=== PATIENT | male | born 1940 | race Caucasian/White ===

== ENCOUNTER → 2023-12-10 09:02 | Outpatient (REF) | payer MEDICARE, BC, SELFPAY ==
[2023-12-10 13:44] LABS: % Basophils 0.6 % (0-2); % Eosinophils 1.7 % (0-6); % Immature Granulocytes 0.2 % (0-0.5); % Lymphocytes 26.7 % (20.5-51.1); % Monocytes 15.9 % (1.7-9.3); % Neutrophils 54.9 % (42.2-75.2); Absolute Eosinophils 0.1 10^3/uL (0-0.7); Absolute Lymphocytes 1.8 10^3/uL (1.2-3.4); Absolute Monocytes 1.1 10^3/uL (0.1-0.6); Absolute Neutrophils 3.7 10^3/uL (1.4-6.5); Mean Corp Hgb Conc. 32.5 g/dL (33.0-37.0); Mean Corpuscular Hgb 27.7 pg (27.0-31.0); Mean Corpuscular Volume 85.1 fL (80.0-94.0); Mean Platelet Volume 12.1 fL (7.4-10.4); Nucleated Red Blood Cells % 0 % (-); Platelet Count 131 10^3/uL (130-400); Red Cell Dist. Width 13.6 % (11.5-14.5); White Blood Cell Count 6.7 10^3/uL (4.8-10.8)
[2023-12-10 13:59] LABS: ALT (SGPT) 17 U/L (0-50); AST (SGOT) 24 U/L (17-59); Alkaline Phosphatase 109 U/L (38-126); Blood Urea Nitrogen 16 mg/dl (9-20); Calcium 8.9 mg/dl (8.4-10.2); Carbon Dioxide 26 mmol/L (22-30); Chloride 104 mmol/L (98-107); Glucose 111 mg/dl (70-99); HDL Cholesterol 46 mg/dl; LDL Cholesterol, Calculated 45 mg/dl; Potassium 4.1 mmol/L (3.5-5.1); Sodium 136 mmol/L (135-145); Total Bilirubin 0.9 mg/dl (0.2-1.3); Total Cholesterol 110 mg/dl (50-199); Total Protein 7.3 g/dl (6.3-8.2); Triglyceride 99 mg/dl (10-149); Very Low Density Lipoprotein 19 mg/dl (0-30); eGFR > 60.00
[2023-12-10 14:11] LABS: Vitamin D, 25-OH*** 64.2 ng/mL (30-80)
[2023-12-10 14:24] LABS: TSH Reflex To Free T4 2.29 uIU/ml (0.47-4.68)
[2023-12-10 14:43] LABS: Microalbumin, Random Urine <0.6 mg/dl (0.6-1.7)
[2023-12-11 11:41] LABS: Glycohemoglobin (HgbA1c) 6.3 % (4.0-5.6)
== END ==
LOC: HWLAB 09:02
PROVIDERS: ATTENDING PHYSICIAN Nurse Practitioner Family
DX: Z76.89 Persons encountering health services in other specified circumstances (principal); I48.0 Paroxysmal atrial fibrillation; I25.10 Atherosclerotic heart disease of native coronary artery without angina pectoris; E78.5 Hyperlipidemia, unspecified; Z95.1 Presence of aortocoronary bypass graft; I35.0 Nonrheumatic aortic (valve) stenosis; E11.59 Type 2 diabetes mellitus with other circulatory complications; I10 Essential (primary) hypertension; N40.1 Benign prostatic hyperplasia with lower urinary tract symptoms; I25.5 Ischemic cardiomyopathy; E55.9 Vitamin D deficiency, unspecified; I45.81 Long QT syndrome; I73.9 Peripheral vascular disease, unspecified; H40.9 Unspecified glaucoma; R21 Rash and other nonspecific skin eruption
CPT/HCPCS: 36415; 80053; 80061; 82043; 82306; 82570; 83036; 84443; 85025

== ENCOUNTER → 2024-06-08 14:55 | Outpatient (REF) | payer MEDICARE, BC, SELFPAY | LOC: HWRCS 14:55 | PROVIDERS: ATTENDING PHYSICIAN Internal Medicine Cardiovascular Disease; FAMILY PHYSICIAN Nurse Practitioner Family | DX: I25.10 Atherosclerotic heart disease of native coronary artery without angina pectoris (principal) | CPT/HCPCS: 93306 ==

== ENCOUNTER → 2024-07-01 10:07 | Outpatient (REF) | payer MEDICARE, BC, SELFPAY ==
[2024-07-01 11:05] LABS: % Basophils 0.7 % (0-2); % Eosinophils 1.6 % (0-6); % Immature Granulocytes 0.7 % (0-0.5); % Lymphocytes 26.1 % (20.5-51.1); % Monocytes 14.9 % (1.7-9.3); Absolute Basophils 0.1 10^3/uL (0-0.2); Absolute Eosinophils 0.1 10^3/uL (0-0.7); Absolute Immature Granulocytes 0.1 10^3/uL (0-0.05); Absolute Monocytes 1.1 10^3/uL (0.1-0.6); Absolute Neutrophils 4.3 10^3/uL (1.4-6.5); Hematocrit 40.8 % (39.0-52.0); Hemoglobin 13.7 g/dL (13.0-18.0); Mean Corp Hgb Conc. 33.6 g/dL (33.0-37.0); Mean Corpuscular Hgb 28.3 pg (27.0-31.0); Mean Corpuscular Volume 84.3 fL (80.0-94.0); Mean Platelet Volume 11.7 fL (7.4-10.4); Nucleated Red Blood Cells % 0 % (-); Platelet Count 160 10^3/uL (130-400); Red Blood Cell Count 4.84 10^6/uL (4.70-6.10); White Blood Cell Count 7.6 10^3/uL (4.8-10.8)
[2024-07-01 11:30] LABS: Microalbumin, Random Urine 1.4 mg/dl (0.6-1.7); Microalbumin/creatinine Ratio 7.9 mg/g
[2024-07-01 11:33] LABS: ALT (SGPT) 21 U/L (0-50); AST (SGOT) 24 U/L (17-59); Albumin 4.1 g/dl (3.5-5.0); Alkaline Phosphatase 112 U/L (38-126); Blood Urea Nitrogen 17 mg/dl (9-20); Calcium 9.1 mg/dl (8.4-10.2); Carbon Dioxide 26 mmol/L (22-30); Chloride 104 mmol/L (98-107); Glucose 117 mg/dl (70-99); HDL Cholesterol 45 mg/dl; LDL Cholesterol, Calculated 51 mg/dl; Potassium 4.3 mmol/L (3.5-5.1); Sodium 144 mmol/L (135-145); Total Bilirubin 0.8 mg/dl (0.2-1.3); Total Cholesterol 120 mg/dl (50-199); Total Protein 7.2 g/dl (6.3-8.2); Triglyceride 121 mg/dl (10-149); Very Low Density Lipoprotein 24 mg/dl (0-30); eGFR > 60.00
[2024-07-01 12:06] LABS: TSH Reflex To Free T4 1.95 uIU/ml (0.47-4.68)
[2024-07-01 13:41] LABS: Glycohemoglobin (HgbA1c) 6.3 % (4.0-5.6)
== END ==
LOC: RAD 10:07
PROVIDERS: ATTENDING PHYSICIAN Nurse Practitioner Family; REFERRING PHYSICIAN Internal Medicine Cardiovascular Disease
DX: I48.0 Paroxysmal atrial fibrillation (principal); I25.10 Atherosclerotic heart disease of native coronary artery without angina pectoris; E78.5 Hyperlipidemia, unspecified; Z95.1 Presence of aortocoronary bypass graft; I35.0 Nonrheumatic aortic (valve) stenosis; E11.59 Type 2 diabetes mellitus with other circulatory complications; I10 Essential (primary) hypertension; N40.1 Benign prostatic hyperplasia with lower urinary tract symptoms; I25.5 Ischemic cardiomyopathy; E55.9 Vitamin D deficiency, unspecified; I45.81 Long QT syndrome; H40.9 Unspecified glaucoma; B02.29 Other postherpetic nervous system involvement; M54.50 Low back pain, unspecified; R73.03 Prediabetes
CPT/HCPCS: 36415; 72110; 80053; 80061; 82043; 82570; 83036; 84443; 85025

== ENCOUNTER 2024-09-11 06:31 | Day surgery (SDC) | payer MEDICARE, BC, SELFPAY ==
[2024-09-11] VITALS (12 sets, daily range): BP systolic 92–143; BP diastolic 50–88; BMI 31.1
[2024-09-11 07:13] LABS: Hematocrit 42.9 % (39.0-52.0); Hemoglobin 14.1 g/dL (13.0-18.0); Mean Corp Hgb Conc. 32.9 g/dL (33.0-37.0); Mean Corpuscular Hgb 28.1 pg (27.0-31.0); Mean Corpuscular Volume 85.5 fL (80.0-94.0); Mean Platelet Volume 11.9 fL (7.4-10.4); Platelet Count 142 10^3/uL (130-400); Red Blood Cell Count 5.02 10^6/uL (4.70-6.10); Red Cell Dist. Width 13.3 % (11.5-14.5); White Blood Cell Count 7.4 10^3/uL (4.8-10.8)
[2024-09-11 07:31] LABS: ALT (SGPT) 22 U/L (0-50); AST (SGOT) 26 U/L (17-59); Albumin 4.5 g/dl (3.5-5.0); Alkaline Phosphatase 121 U/L (38-126); Blood Urea Nitrogen 15 mg/dl (9-20); Carbon Dioxide 24 mmol/L (22-30); Chloride 105 mmol/L (98-107); Estimated Creatinine Clearance 59 ml/min; Glucose 154 mg/dl (70-99); Sodium 142 mmol/L (135-145); Total Bilirubin 1.1 mg/dl (0.2-1.3); Total Protein 7.6 g/dl (6.3-8.2); eGFR > 60.00
[2024-09-11] MEDS: LOW STRENGTH ASPIRIN 324 MG PO (08:03)
--- NOTE | 2024-09-11 12:57 | ITS.CL.CATH ---
Validation Scientist - Catheterization
Cardiac Catheterization
Procedure Report:
LEFT HEART CATHETERIZATION
Date of Procedure: September 11, 2024
Referring: Dr. Erica Newsome
PROCEDURES:
1. Left heart catheterization with coronary and single-plane left ventriculography
2. Selective saphenous vein graft and KHUSHBU angiography
INDICATION: This is an 84-year-old gentleman who presented to our office for evaluation of substernal chest discomfort which has been present for several months. He has a remote history of coronary artery bypass grafting at [facility] in the
late 1990s. He has a history of hypertension, hyperlipidemia, diabetes mellitus, and paroxysmal atrial fibrillation with PVI in 2016 and again in 2021. He occasionally will experience chest discomfort during episodes of atrial tachycardia. More
recently he has noticed chest tightness when climbing a flight of stairs or walking great distances. His symptoms typically resolve fairly quickly with resting. In 2021 he underwent successful stenting of the proximal LAD with a 2.5 x 15 mm Karl
stent that was implanted at nominal pressures and postdilated to high pressures with a 2.75 mm noncompliant balloon.
ACCESS: Right common femoral artery, 6 Albanian sheath
HEMODYNAMICS : (mmHg)
AO (s/d) : 147/80, 106
LV (s/d) : 162/13
LVEDP : 21
AORTIC VALVE:
Mean Gradient: 20 mmHg
CORONARY ANGIOGRAPHY
Dominance: Right
LEFT MAIN: Calcified with 30% distal stenosis.
LEFT ANTERIOR DESCENDING: The LAD arises normally from the left main and runs in the anterior ventricular groove. The Karl stent in the proximal LAD is patent. The mid LAD becomes 100% occluded just beyond the first diagonal branch. The diagonal
was previously noted to fill the sequential limb of the SVG-D-OM. The sequential limb to the small OM2 is no longer noted. The CULLEN-LAD is widely patent and fills antegrade and retrograde to the KHUSHBU anastomosis. The LAD has mild irregularities
proximal to and beyond the KHUSHBU touchdown.
CIRCUMFLEX: The circumflex is a medium caliber nondominant vessel giving rise to a moderate-sized OM1 that runs in a distribution typical for a ramus intermedius. OM2 is small with a focal high-grade ostial stenosis. The small OM2 was noted to
fill via a sequential portion of the SVG-D-OM2. This sequential limb is now 100% occluded. OM2 is a very small caliber vessel.
RIGHT CORONARY ARTERY: Moderate caliber dominant vessel that becomes 100% occluded in its midportion. The posterolateral branch and PDA fill via well-developed collaterals from the AV circumflex.
GRAFT ANGIOGRAPHY:
1. CULLEN-LAD: Widely patent with antegrade and retrograde filling of the LAD proximal and distal to the KHUSHBU touchdown. Only minor irregularities are noted.
2. HLT-hnevucqa-YH 2: 100% occluded at its origin
3. SVG-RCA: 100% occluded
LEFT VENTRICULOGRAPHY: Left ventriculography was performed in an ANGELES projection. The digital single-plane left ventricular ejection fraction is visually estimated at 40-45% with moderate global hypokinesis
RADIATION SUMMARY: Fluoro Time (min): 9.7, Dose (mGy): 779, DAP (Gy.cm2) : 64
Closure Device: 6 Albanian Angio-Seal, RFA
CONCLUSION
1. Stable coronary anatomy. The only new angiographic finding is 100% occlusion of the sequential limb of the SVG from the diagonal to the small OM2. No good percutaneous treatment options
2. Widely patent CULLEN-LAD and known proximal chronic occlusions of the SVG-RCA and BXG-[id number]-SV9.
3. Mildly reduced LVEF
RECOMMENDATIONS
1. Medical therapy for coronary artery disease. We will increase Toprol XL from 12.5 mg bid to 25 mg bid
2. Followup with Dr. Newsome
Copy to: Dr. Erica Newsome, Dr. Bong Velazquez
== END 2024-09-11 14:05 | disposition home or self-care (01) ==
LOC: CATH 06:31
PROVIDERS: ATTENDING PHYSICIAN Internal Medicine Interventional Cardiology; FAMILY PHYSICIAN Surgery; OTHER PHYSICIAN Internal Medicine Cardiovascular Disease
DX: I25.810 Atherosclerosis of coronary artery bypass graft(s) without angina pectoris (principal); I25.10 Atherosclerotic heart disease of native coronary artery without angina pectoris; R07.89 Other chest pain; Z95.5 Presence of coronary angioplasty implant and graft; I48.0 Paroxysmal atrial fibrillation; I10 Essential (primary) hypertension; E78.5 Hyperlipidemia, unspecified; E11.9 Type 2 diabetes mellitus without complications; Z95.1 Presence of aortocoronary bypass graft; Z87.891 Personal history of nicotine dependence; Z79.01 Long term (current) use of anticoagulants; Z79.02 Long term (current) use of antithrombotics/antiplatelets; Z79.84 Long term (current) use of oral hypoglycemic drugs
CPT/HCPCS: 80053; 85027; 93459; C1760; C1894; Q9967

== ENCOUNTER → 2024-10-25 12:48 | Outpatient (REF) | payer OTHER, SELFPAY | LOC: RCS 12:48 | PROVIDERS: ATTENDING PHYSICIAN Internal Medicine Cardiovascular Disease; FAMILY PHYSICIAN Nurse Practitioner Family | DX: R07.9 Chest pain, unspecified (principal) | CPT/HCPCS: 93306 ==

== ENCOUNTER → 2024-10-27 10:30 | Outpatient (REF) | payer OTHER, SELFPAY ==
[2024-10-27 12:26] LABS: % Basophils 0.9 % (0-2); % Eosinophils 1.4 % (0-6); % Immature Granulocytes 0.4 % (0-0.5); % Lymphocytes 26.6 % (20.5-51.1); % Monocytes 15.2 % (1.7-9.3); % Neutrophils 55.5 % (42.2-75.2); Absolute Basophils 0.1 10^3/uL (0-0.2); Absolute Eosinophils 0.1 10^3/uL (0-0.7); Absolute Lymphocytes 1.9 10^3/uL (1.2-3.4); Absolute Monocytes 1.1 10^3/uL (0.1-0.6); Absolute Neutrophils 3.9 10^3/uL (1.4-6.5); Hematocrit 41.4 % (39.0-52.0); Hemoglobin 13.2 g/dL (13.0-18.0); Mean Corp Hgb Conc. 31.9 g/dL (33.0-37.0); Mean Corpuscular Hgb 28.1 pg (27.0-31.0); Mean Corpuscular Volume 88.1 fL (80.0-94.0); Mean Platelet Volume 12.5 fL (7.4-10.4); Nucleated Red Blood Cells % 0 % (-); Platelet Count 131 10^3/uL (130-400); Red Cell Dist. Width 13.2 % (11.5-14.5)
[2024-10-27 12:39] LABS: ALT (SGPT) 15 U/L (0-50); AST (SGOT) 21 U/L (17-59); Albumin 3.9 g/dl (3.5-5.0); Alkaline Phosphatase 108 U/L (38-126); Blood Urea Nitrogen 16 mg/dl (9-20); Carbon Dioxide 27 mmol/L (22-30); Chloride 103 mmol/L (98-107); Glucose 112 mg/dl (70-99); HDL Cholesterol 40 mg/dl; LDL Cholesterol, Calculated 48 mg/dl; Potassium 4.1 mmol/L (3.5-5.1); Sodium 138 mmol/L (135-145); Total Bilirubin 0.9 mg/dl (0.2-1.3); Total Cholesterol 110 mg/dl (50-199); Total Protein 6.9 g/dl (6.3-8.2); Triglyceride 110 mg/dl (10-149); Very Low Density Lipoprotein 22 mg/dl (0-30); eGFR > 60.00
[2024-10-27 13:07] LABS: TSH Reflex To Free T4 1.96 uIU/ml (0.47-4.68)
[2024-10-27 13:10] LABS: NT-proBNP 1180 pg/ml
[2024-10-27 14:04] LABS: Glycohemoglobin (HgbA1c) 6.4 % (4.0-5.6)
[2024-10-27 14:31] LABS: Microalbumin, Random Urine 0.7 mg/dl (0.6-1.7)
== END ==
LOC: HWLAB 10:30
PROVIDERS: ATTENDING PHYSICIAN Internal Medicine Cardiovascular Disease; FAMILY PHYSICIAN Nurse Practitioner Family
DX: I48.0 Paroxysmal atrial fibrillation (principal); I25.10 Atherosclerotic heart disease of native coronary artery without angina pectoris; E78.5 Hyperlipidemia, unspecified; Z95.1 Presence of aortocoronary bypass graft; I35.0 Nonrheumatic aortic (valve) stenosis; I25.5 Ischemic cardiomyopathy; E11.59 Type 2 diabetes mellitus with other circulatory complications; I10 Essential (primary) hypertension; N40.1 Benign prostatic hyperplasia with lower urinary tract symptoms; E55.9 Vitamin D deficiency, unspecified; I45.81 Long QT syndrome; H40.9 Unspecified glaucoma; B02.29 Other postherpetic nervous system involvement; R07.89 Other chest pain; R14.2 Eructation
CPT/HCPCS: 36415; 80053; 80061; 82043; 82306; 82570; 83036; 83880; 84443; 85025

== ENCOUNTER → 2024-11-07 10:06 | Outpatient (REF) | payer OTHER, SELFPAY | LOC: WDC 10:06 | PROVIDERS: ATTENDING PHYSICIAN Internal Medicine Cardiovascular Disease; FAMILY PHYSICIAN Nurse Practitioner Family | DX: N64.4 Mastodynia (principal) | CPT/HCPCS: 76642; 77062; 77066 ==

== ENCOUNTER → 2024-11-20 09:34 | Outpatient (REF) | payer OTHER, SELFPAY ==
[2024-11-20 12:28] LABS: Blood Urea Nitrogen 20 mg/dl (9-20); Calcium 9.2 mg/dl (8.4-10.2); Carbon Dioxide 26 mmol/L (22-30); Chloride 100 mmol/L (98-107); Glucose 130 mg/dl (70-99); Potassium 4.1 mmol/L (3.5-5.1); Sodium 137 mmol/L (135-145); eGFR > 60.00
== END ==
LOC: HWLAB 09:34
PROVIDERS: ATTENDING PHYSICIAN Nurse Practitioner Family
DX: R60.0 Localized edema (principal); M54.9 Dorsalgia, unspecified; R06.09 Other forms of dyspnea; R07.9 Chest pain, unspecified
CPT/HCPCS: 36415; 71046; 72072; 80048

== ENCOUNTER 2024-12-07 15:45 | Outpatient (RCR) | payer OTHER, SELFPAY | END 2024-12-07 23:59 | disposition home or self-care (01) | LOC: RPT 15:45 | PROVIDERS: ATTENDING PHYSICIAN Nurse Practitioner Family | DX: M54.9 Dorsalgia, unspecified (principal); Z73.6 Limitation of activities due to disability; M25.561 Pain in right knee | CPT/HCPCS: 97110; 97140; 97162 ==

== ENCOUNTER 2024-12-29 10:47 | Outpatient (RCR) | payer OTHER, SELFPAY | END 2024-12-29 23:59 | disposition home or self-care (01) | LOC: RPT 10:47 | PROVIDERS: ATTENDING PHYSICIAN Nurse Practitioner Family | DX: M54.9 Dorsalgia, unspecified (principal); Z73.6 Limitation of activities due to disability; M25.561 Pain in right knee | CPT/HCPCS: 97110; 97140 ==

== ENCOUNTER → 2024-12-29 16:30 | Outpatient (REF) | payer OTHER, SELFPAY | LOC: RAD 16:30 | PROVIDERS: ATTENDING PHYSICIAN Internal Medicine Cardiovascular Disease; FAMILY PHYSICIAN Nurse Practitioner Family | DX: I71.9 Aortic aneurysm of unspecified site, without rupture (principal); I71.21 Aneurysm of the ascending aorta, without rupture | CPT/HCPCS: 71275; 74174; Q9967 ==

== ENCOUNTER 2025-04-05 11:23 | Emergency (ER) | payer OTHER, SELFPAY ==
[2025-04-05 11:30] VITALS: BP 106/59
--- NOTE | 2025-04-05 12:48 | ED.GENMED ---
History of Present Illness
General
Chief Complaint: Extremity Pain (non-traumatic)
Source: patient
Time Seen by Provider: 04/05/25 12:01
History of Present Illness
History of Present Illness:
85-year-old male with past medical history of atrial fibrillation, hypertension, hyperlipidemia, [id number] diabetes presenting to the emergency department for evaluation of nontraumatic left knee pain that has been ongoing for the last
few days, worse with ambulation, somewhat improved when he took Tylenol 2 days ago. Patient notes history of previous right knee surgery and believes he saw [facility] orthopedist in the past for this. Patient denies any fevers, chills, rigors, calf
pain or edema, focal weakness or numbness or any other concerns. He did not take anything for the pain yet today.
Past History
Past History
ED Past Medical History: Arrthythmia (Atrial fib), CAD, HTN, Hypercholesterolemia and IA
ED Past Surgical History: Appendectomy and Cardiac (CABG, ablation for a-fib)
Social History
Tobacco: Former smoker
Alcohol: Occasional
Drug: None
Personal: Other (Significant other)
Living: with family
Review of Systems
Review of Systems
All Other Systems: ROS reviewed and negative except as documented in HPI and ROS
Phy Exam
Physical Exam
Physical Exam:
GENERAL: Alert , in no apparent distress
EYE: conjunctiva clear
Head: Normocephalic atraumatic
NECK: Supple,
ENT: mmm.
LUNGS: no acute respiratory distress
NEUROLOGICAL: Alert and oriented
SKIN: Warm and dry, skin intact.
MUSCULOSKELETAL: Left knee: Mild soft tissue swelling without any joint effusion appreciated. No overlying erythema, ecchymosis, abrasions or lacerations. Patient does allow for active and passive range of motion without any crepitus. This does
cause some slight discomfort.. Peripherally patient has easily palpable pulses. Cap refill less than 2 seconds. Sensation grossly to light touch. Remainder of extremity is within normal limit.
PSYCH: Normal and appropriate interaction.
Scores
Heart Failure Risk
Heart Failure Risk Score: Not Applicable
Heart Score for Chest Pain Patients
STEMI patient?: Not applicable
Withdrawal Assessment of Alcohol
Withdrawal Assessment Completed?: Not applicable
Course
Orders/Labs/Results
Orders:
Orders
04/05/25 12:05
CR Knee - Left 4 Or More View* Urgent
Comment:
Reason For Exam: pain
04/05/25 12:48
Acetaminophen [Tylenol] 1,000 mg PO NOW STA
Vital Signs
Initial and Last Documented VS:
Initial Vital Signs
Temp Pulse Resp Pulse Ox
97.9 F 119 18 95
04/05/25 11:29 04/05/25 11:29 04/05/25 11:29 04/05/25 11:29
Last Documented Vital Signs
Temp Pulse Resp BP Pulse Ox
97.9 F 119 18 106/59 95
04/05/25 11:29 04/05/25 11:29 04/05/25 11:29 04/05/25 11:30 04/05/25 12:51
MDM/Problems Addressed
Differential Diagnosis Includes:
- Osteoarthritis
- Ligamentous injury/sprain
- Meniscal injury
- No symptoms to suggest infectious etiology/septic arthritis
- Lyme
- Gout
- DVT
MDM/Problems Addressed:
85-year-old male presenting to the ER for evaluation of nontraumatic left knee pain, symptoms somewhat improved with Tylenol but patient states he does not really like taking pain medicine so did not take any today. Exam shows soft tissue swelling
without any significant joint effusion. X-ray ordered shows significant degenerative changes throughout the knee. Patient amenable to Tylenol here. Encouraged close follow-up with his orthopedic team at [facility] for further evaluation as needed.
Patient is otherwise stable for discharge home and aware of return precautions.
*Radiology
Radiology exam reviewed: preliminary read by ED provider (Degenerative changes, no fracture)
*Pulse Oximetry
SaO2: 95
Patient hypoxic: no
*Critical Care Note
Total Time (30-74mins, 75-104mins- exclusive of procedures): Not Applicable
ED Attending Note
-
Portions of this chart may have been created with voice recognition software.� Occasional wrong word or��sound alike� substitutions may have occurred due to the inherent limitations of voice recognition software.
Discharge Plan
Departure
Patient Disposition: Home (Routine Discharge)
Date of Disposition: 04/05/25
Time of Disposition: 12:48
Patient with high blood pressure during this ER visit?: No
Discharge Problem:
Left knee pain
Instructions: Knee pain - ED discharge instructions
Prescriptions:
No Action
acetaminophen 325 MG tablet
650 mg PO Q4HPRN PRN (Reason: mild pain/SHERMAN/temp> 100.4F) 0RF
cholecalciferol (vitamin D3) 2,000 UNITS tablet
2,000 units PO DAILY Qty: 10 0RF
cyanocobalamin (vitamin B-12) [Vitamin B-12] 1,000 mcg Tablet
2,000 mcg PO DAILY Qty: 0
tamsulosin 0.4 MG capsule
0.4 mg PO HS
isosorbide mononitrate 60 MG tablet extended release 24 hr
60 mg PO DAILY
Eliquis 5 MG tablet
5 mg PO BID Qty: 60 6RF
clopidogrel 75 mg Tablet
75 mg PO DAILY Qty: 90 3RF
dofetilide 125 mcg Capsule
125 mcg PO Q12 Qty: 60 11RF
ezetimibe 10 mg tablet
10 mg PO DAILY
coenzyme Q10 [Co Q-10] 100 mg Capsule
100 mg PO DAILY
Januvia 100 mg tablet
100 mg PO DAILY
atorvastatin 40 mg Tablet
40 mg PO HS
metoprolol succinate 25 mg tablet extended release 24 hr
25 mg PO BID Qty: 180 3RF
Referrals:
Julio César Benitez CRNP [Family Provider, Family Practice]
Kamlesh Alves MD [Active, Orthopedics]
Referral Note: Please call for appointment
Interventions
Interventions:
*Risk Screen - Suicide Last Done: 04/05/25 11:30
*Nursing Disposition Last Done: 04/05/25 13:17
ED-Musculoskeletal Assessment Last Done: 04/05/25 11:46
Discharge Date and Time
Print Language: CITIZEN [place]
[2025-04-05] MEDS: TYLENOL 1000 MG PO (12:55)
== END 2025-04-05 13:18 | disposition home or self-care (01) ==
LOC: EMR 11:23
PROVIDERS: EMERGENCY PHYSICIAN Student in an Organized Health Care Education/Training Program; FAMILY PHYSICIAN Nurse Practitioner Family
DX: M25.562 Pain in left knee (principal); I48.91 Unspecified atrial fibrillation; I10 Essential (primary) hypertension; E78.00 Pure hypercholesterolemia, unspecified; E11.9 Type 2 diabetes mellitus without complications; I25.10 Atherosclerotic heart disease of native coronary artery without angina pectoris; Z87.891 Personal history of nicotine dependence; Z90.49 Acquired absence of other specified parts of digestive tract; Z95.1 Presence of aortocoronary bypass graft
CPT/HCPCS: 99283; 73564

== ENCOUNTER 2025-09-05 13:50 | Inpatient (IN) | payer OTHER, SELFPAY ==
[2025-09-02] VITALS (10 sets, daily range): BP systolic 103–140; BP diastolic 62–92; PULSE 72–99; BMI 27.2
--- NOTE | 2025-09-02 02:24 | ED.GENMED ---
History of Present Illness
<Tiago Abreu PA-C - Last Filed: 09/02/25 03:13>
General
Chief Complaint: Heart Rate Problem
Time Seen by Provider: 09/02/25 02:17
History of Present Illness
History of Present Illness:
85-year-old male with history of coronary artery disease, paroxysmal A-fib, hypertension, hyperlipidemia, jap-skarjvh-fgmqqknvg diabetes, and BPH presents to the emergency department for evaluation of heart palpitations. States yesterday he
developed significant indigestion and vomited several times. Since that time he has felt palpitations. He does report the indigestion is improved. He also feels the need to clear his throat frequently. Denies active chest pain or shortness of
breath at present but does report some exertional dyspnea over the past week or so. No fevers or chills. He is compliant with all of his medications including Eliquis. Last cardiac catheterization was September 2024 showing widely CULLEN to LAD with
the exception of 100% occlusions of the SVG to diagonal to OM 2 as well as the SVG to RCA
Past History
<Tiago Abreu PA-C - Last Filed: 09/02/25 03:13>
Past History
ED Past Medical History: Arrthythmia (Atrial fib), CAD, HTN, Hypercholesterolemia and SC
ED Past Surgical History: Appendectomy and Cardiac (CABG, ablation for a-fib)
Social History
Tobacco: Former smoker
Alcohol: Occasional
Drug: None
Personal: Other (Significant other)
Living: with family
Review of Systems
<Tiago Abreu PA-C - Last Filed: 09/02/25 03:13>
Review of Systems
Allergies reviewed?: Yes
All Other Systems: ROS reviewed and negative except as documented in HPI and ROS
Phy Exam
<Tiago Abreu PA-C - Last Filed: 09/02/25 03:13>
Physical Exam
Physical Exam:
GEN: Well appearing, NAD, WDWN
HEENT: Oral mucosa moist, no scleral icterus
Cardiac: Irregular, controlled rate, systolic murmur
Lung: No respiratory distress, no tachypnea, lungs clear to auscultation bilaterally
MSK: No gross deformity or injuries, no edema
Skin: Good color, no pallor or jaundice, no rashes
Neuro: AO x3, moves all extremities freely
Psych: Calm, cooperative
Course
<Tiago Abreu PA-C - Last Filed: 09/02/25 03:13>
Orders/Labs/Results
Orders:
Orders
09/02/25 01:58
ECG [Electrocardiogram (*1)] Urgent
Reason for Study: Chest Pain
Other Reason for Exam: PALPITATIONS
EKG- Treatment ONCE
09/02/25 02:20
Complete Blood Count/With Diff Urgent
Comprehensive Metabolic Panel Urgent
NT-proBNP Urgent
Comment: ADDED
Troponin I Urgent
09/02/25 02:24
Add On- LAB Urgent
Tests Added?: BNP
09/02/25 02:26
CR Chest - 2 Views Urgent
Comment:
Reason For Exam: SCHRADER
Abnormal Lab Results
09/02/25
02:20
RBC 4.47 L 10^6/uL
(4.70-6.10)
Hgb 12.7 L g/dL
(13.0-18.0)
Hct 37.8 L %
(39.0-52.0)
Plt Count 116 L 10^3/uL
(130-400)
MPV 12.0 H fL
(7.4-10.4)
Absolute Monos (auto) 1.1 H 10^3/uL
(0.1-0.6)
Monocytes % 14.1 H %
(1.7-9.3)
Glucose 146 H mg/dl
(70-99)
09/02/25 02:20
09/02/25 02:20
Vital Signs
Initial and Last Documented VS:
Initial Vital Signs
Temp Pulse Resp BP Pulse Ox
98.1 F 102 24 136/92 97
09/02/25 01:55 09/02/25 01:55 09/02/25 01:55 09/02/25 01:55 09/02/25 01:55
Last Documented Vital Signs
Temp Pulse Resp BP Pulse Ox
98.1 F 70 14 136/92 94
09/02/25 01:55 09/02/25 04:20 09/02/25 04:20 09/02/25 04:20 09/02/25 04:20
<Francie Blanchard, - Last Filed: 09/02/25 04:34>
Orders/Labs/Results
Orders:
Orders
09/02/25 01:58
ECG [Electrocardiogram (*1)] Urgent
Reason for Study: Chest Pain
Other Reason for Exam: PALPITATIONS
EKG- Treatment ONCE
09/02/25 02:20
Complete Blood Count/With Diff Urgent
Comprehensive Metabolic Panel Urgent
NT-proBNP Urgent
Comment: ADDED
Troponin I Urgent
09/02/25 02:24
Add On- LAB Urgent
Tests Added?: BNP
09/02/25 02:26
CR Chest - 2 Views Urgent
Comment:
Reason For Exam: SCHRADER
Abnormal Lab Results
09/02/25
02:20
RBC 4.47 L 10^6/uL
(4.70-6.10)
Hgb 12.7 L g/dL
(13.0-18.0)
Hct 37.8 L %
(39.0-52.0)
Plt Count 116 L 10^3/uL
(130-400)
MPV 12.0 H fL
(7.4-10.4)
Absolute Monos (auto) 1.1 H 10^3/uL
(0.1-0.6)
Monocytes % 14.1 H %
(1.7-9.3)
Glucose 146 H mg/dl
(70-99)
09/02/25 02:20
09/02/25 02:20
Vital Signs
Initial and Last Documented VS:
Initial Vital Signs
Temp Pulse Resp BP Pulse Ox
98.1 F 102 24 136/92 97
09/02/25 01:55 09/02/25 01:55 09/02/25 01:55 09/02/25 01:55 09/02/25 01:55
Last Documented Vital Signs
Temp Pulse Resp BP Pulse Ox
98.1 F 70 14 136/92 94
09/02/25 01:55 09/02/25 04:20 09/02/25 04:20 09/02/25 04:20 09/02/25 04:20
<Tiago Abreu PA-C - Last Filed: 09/02/25 03:13>
MDM/Problems Addressed
MDM/Problems Addressed:
Patient's workup is overall reassuring however reviewed case with attending physician Dr. Blanchard, we observe the patient's telemetry which shows frequent fusion complexes and prolonged pauses however the patient is not profoundly symptomatic during
these pauses. Given his advanced age and variable rhythm with these pauses will place in telemetry observation
<Tiago Abreu PA-C - Last Filed: 09/02/25 03:13>
Comment
Comment:
EKG independently interpreted by me shows a rate controlled atrial fibrillation with frequent PVCs, no ST changes concerning for ischemia
*Pulse Oximetry
SaO2: 95
Oxygen Mode of Delivery: Room air
Patient hypoxic: no
*Critical Care Note
Total Time (30-74mins, 75-104mins- exclusive of procedures): Not Applicable
ED Attending Note
<Tiago Abreu PA-C - Last Filed: 09/02/25 03:13>
-
Portions of this chart may have been created with voice recognition software.� Occasional wrong word or��sound alike� substitutions may have occurred due to the inherent limitations of voice recognition software.
<Francie Blanchard DO - Last Filed: 09/02/25 04:34>
ED Attending Note
Patient seen and examined by attending physician: Yes
I performed a history and physical exam of patient and discussed management with resident, I reviewed resident's note and agree with documented findings and plan of care.: Yes
ED Attending Note:
85-year-old gentleman with history of PAF, cardiomyopathy, hypertension, hyperlipidemia, diabetes,. Presents with complaints of palpitations and left upper chest CAD/SC pain that began tonight around 10 PM. Palpitations and left upper chest pain
occasionally resolved with burping but not tonight. No other associated symptoms, no dizziness nor lightheadedness.
Symptoms persisted prompting ED visit but since arrival to the ED he is now feeling improved.
85-year-old gentleman appears his stated age, awake and alert, pleasant, appears in no acute distress.
Heart is irregularly irregular at a rate of 50-80.
Lungs are clear to auscultation.
EKG shows probable A-fib with frequent PVCs, there is also note of questionable intermittent P waves.
Monitor shows similar, A-fib alternating with sinus rhythm, frequent PVCs and there is also note of significant pauses/bradycardia arrhythmia.
He remains hemodynamically stable.
Due to significant pauses on site monitor, recommend he admit to hospitalist service, continue site monitor and plan for cardiology evaluation.
Discharge Plan
Departure
Patient Disposition: Admit
Date of Disposition: 09/02/25
Time of Disposition: 03:12
Admit to: Telemetry
Presentation/result/management discussed w/ accepting MD/DO: Hospitalist
Discharge Problem:
Heart palpitations, Paroxysmal atrial fibrillation with conversion pauses
Prescriptions:
No Action
acetaminophen 325 MG tablet
650 mg PO Q4HPRN PRN (Reason: mild pain/SHERMAN/temp> 100.4F) 0RF
cholecalciferol (vitamin D3) 2,000 UNITS tablet
2,000 units PO DAILY Qty: 10 0RF
cyanocobalamin (vitamin B-12) [Vitamin B-12] 1,000 mcg Tablet
2,000 mcg PO DAILY Qty: 0
tamsulosin 0.4 MG capsule
0.4 mg PO HS
isosorbide mononitrate 60 MG tablet extended release 24 hr
60 mg PO DAILY
Eliquis 5 MG tablet
5 mg PO BID Qty: 60 6RF
clopidogrel 75 mg Tablet
75 mg PO DAILY Qty: 90 3RF
dofetilide 125 mcg Capsule
125 mcg PO Q12 Qty: 60 11RF
ezetimibe 10 mg tablet
10 mg PO DAILY
coenzyme Q10 [Co Q-10] 100 mg Capsule
100 mg PO DAILY
Januvia 100 mg tablet
100 mg PO DAILY
atorvastatin 40 mg Tablet
40 mg PO HS
metoprolol succinate 25 mg tablet extended release 24 hr
25 mg PO BID Qty: 180 3RF
Referrals:
Julio César Benitez CRNP [Family Provider, Family Practice]
Interventions
Interventions:
*Risk Screen - Suicide Last Done: 09/02/25 01:55
*General Assessment Last Done: 09/02/25 02:13
*Neglect/Abuse Screening Last Done: 09/02/25 01:55
*ED- Fall Risk Assessment Last Done: 09/02/25 02:13
*ED COVID-19 Vaccine History Last Done: 09/02/25 02:13
*ED Influenza Vaccine History Last Done: 09/02/25 02:13
ED- Cardiac Assessment Last Done: 09/02/25 02:13
ED- Pulmonary Assessment Last Done: 09/02/25 02:13
Discharge Date and Time
Print Language: YAK[place]
[2025-09-02 02:55] LABS: Hematocrit 37.8 % (39.0-52.0); Hemoglobin 12.7 g/dL (13.0-18.0); Mean Corp Hgb Conc. 33.6 g/dL (33.0-37.0); Mean Corpuscular Volume 84.6 fL (80.0-94.0); Nucleated Red Blood Cells % 0 % (-); Platelet Count 116 10^3/uL (130-400); Red Cell Dist. Width 13.5 % (11.5-14.5); Troponin I < 0.012 ng/ml
[2025-09-02 03:02] LABS: ALT (SGPT) 12 U/L (0-50); AST (SGOT) 18 U/L (17-59); Albumin 4.0 g/dl (3.5-5.0); Alkaline Phosphatase 97 U/L (38-126); Blood Urea Nitrogen 18 mg/dl (9-20); Calcium 8.4 mg/dl (8.4-10.2); Carbon Dioxide 25 mmol/L (22-30); Chloride 105 mmol/L (98-107); Glucose 146 mg/dl (70-99); Potassium 3.5 mmol/L (3.5-5.1); Sodium 138 mmol/L (135-145); Total Protein 7.0 g/dl (6.3-8.2); eGFR > 60.00
--- NOTE | 2025-09-02 03:57 | HPS.HSE ---
Family Physician
-
Family Physician: CAMILLE Kirby
Chief Complaint
-
Palpitations
History of Present Illness
Patient is a 85-year-old with past medical history significant for atrial fibrillation on anticoagulation status post ablation, CAD status post CABG, status post PCI 2023, [id number] diabetes, hypertension, hyperlipidemia, BPH who comes
in with complaints of chest pain and palpitation.
Patient tells me that at around 10 PM he noticed left upper chest pain that he has experienced previously and that usually improves with burping. However he popped several times and the pain was still persistent and he became concerned. Reports
that the pain was associated with deep inspiration. He also reports that there is some association with some shortness of breath. There was no diaphoresis and no nausea or vomiting. He reports that he associates the pain with tachycardia to
greater than 110 on pulse oximetry and improvement when the pulse rate is below 70. He denies feeling dizzy or lightheaded. Denies any syncopal episode.
He is status post PCI 2023 and is currently on Plavix and Eliquis.
In the Emergency Department he was afebrile, blood pressure was 104/64 with a pulse rate of 85 and he was satting 97% on room air. ECG shows atrial fibrillation at rate of 97 with occasional PVC. Chest x-ray shows no acute infiltrates. Troponin
was negative at 0.012. BNP was elevated at 1700. Electrolytes BUN/creatinine were all normal with normal glucose. CBC was unremarkable.
Medical History
Past Medical History
Past Medical History: Reports Other
Additional Past Medical History:
ASCVD
Paroxysmal Atrial Fibrillation
DM-II
Hypertension
Aortic Stenosis
DJD
Past Surgical History: Reports Other
Additional Past Surgical History:
PVI Ablation x 2
PTCA with Stent
Right Knee Arthroscopy x multiple
Lumbar Laminectomy
Trigger Finger Release
Social History
Tobacco: Former Smoker
Alcohol: None
Drug: None
Family History
Family History: Not pertinent
Allergies / Home Medications
Allergies reflects when Allergies were last updated in [facility].
Home Medications with original date entered in [facility]
Allergy/Medication List:
Allergies
Allergy/AdvReac Type Severity Reaction Status Date / Time
No Known Allergies Allergy Verified 09/10/23 13:28
Home Medications
acetaminophen 325 mg tablet 650 mg PO Q4HPRN PRN mild pain/SHERMAN/temp> 100.4F 09/11/19
cholecalciferol (vitamin D3) 50 mcg (2,000 unit) tablet 2,000 units PO DAILY #10 tabs 09/02/20
cyanocobalamin (vitamin B-12) 1,000 mcg tablet (Vitamin B-12) 2,000 mcg PO DAILY ##0 11/20/21
tamsulosin 0.4 mg capsule 0.4 mg PO HS 11/20/21
apixaban 5 mg tablet (Eliquis) 5 mg PO BID #60 tabs 12/01/21
isosorbide mononitrate 60 mg tablet,extended release 24 hr 60 mg PO DAILY 12/01/21
metformin 500 mg tablet,extended release 24 hr 500 mg PO BID@0800,1700 09/16/22
clopidogrel 75 mg tablet 75 mg PO DAILY #90 tabs 09/19/22
dofetilide 125 mcg capsule 125 mcg PO Q12 #60 caps 09/19/22
metoprolol succinate 25 mg tablet,extended release 24 hr 12.5 mg PO BID 30 days #30 tabs 09/19/22
coenzyme Q10 100 mg capsule (Co Q-10) 100 mg PO DAILY 09/14/23
ezetimibe 10 mg tablet 10 mg PO DAILY 09/14/23
hydrocodone 5 mg-acetaminophen 325 mg tablet 0.5 tab PO HSPRN PRN moderate Pain 09/14/23
sitagliptin phosphate 100 mg tablet (Januvia) 100 mg PO DAILY 09/14/23
Review of Systems
-
Constitutional: Reports No Symptoms
EENT: Reports No Symptoms
Respiratory: Reports No Symptoms
Cardiac: Reports Chest Pain and Palpitations
Abdomen/GI: Reports Nausea
: Reports No Symptoms
Musculoskeletal: Reports No Symptoms
Skin: Reports No Symptoms
Neurological: Reports No Symptoms
Endocrine: Reports No Symptoms
Hematologic/Lymphatic: Reports No Symptoms
Psych: Reports No Symptoms
Physical Exam
Vital Signs
Vital Signs
Temp Pulse Resp BP Pulse Ox
98.1 F 85 22 124/64 97
09/02/25 01:55 09/02/25 03:01 09/02/25 03:01 09/02/25 02:14 09/02/25 03:01
Physical Exam
General: Other (83y M in mild distress due to pain.)
HEENT: Moist mucous membranes
Respiratory: Clear; No Wheezes, Rales or Rhonchi
Cardiac: S1/S2, Irregular Rhythm and Murmur (II/ SERA)
GI: Soft, Non Tender, Non Distended and Normal Bowel Sounds
Musculoskeletal: No Clubbing, No Cyanosis and No Edema
Skin: Warm and Dry
Neuro: AO x 3 and Nonfocal/grossly intact
Hematologic/Lymphatic: No Lymphadenopathy
Psych: Calm
Laboratory Results
-
09/02/25 02:20
09/02/25 02:20
Laboratory Results
Total Bilirubin 0.8 mg/dl (0.2-1.3) 09/02/25 02:20
AST 18 U/L (17-59) 09/02/25 02:20
ALT 12 U/L (0-50) 09/02/25 02:20
Alkaline Phosphatase 97 U/L (38-126) 09/02/25 02:20
Troponin I < 0.012 ng/ml 09/02/25 02:20
Data Reviewed
-
Diagnostic Radiology: Image Personally Visualized and interpreted
Medical Tests (Nuc Med, Echo, EKG etc): Image Personally Visualized and interpreted
Lab Data: Labs Reviewed by me
Old Records: Reviewed
Impression/Plan
-
IMPRESSION:
85-year-old past medical history significant for atrial fibrillation status post ablation on anticoagulation with Eliquis, CAD status post remote CABG and status post recent PTCA with 1 stent on Plavix, BPH, hyperlipidemia, [id number]
diabetes presenting to the emergency department with episode of left-sided chest pain. Chest pain appears atypical and nonradiating however associated with some shortness of breath and heart rate changes. On arrival in the emergency department was
afebrile hemodynamically stable and nontoxic and is currently without any chest pain. ECG shows atrial fibrillation and no acute ST or T wave changes. His troponin was negative. He however had episodes of bradycardia in the emergency department
but appeared to be asymptomatic from this.'s labs unremarkable. Chest x-ray shows no infiltrates.
PLAN:
Chest pain/CAD -appears to be atypical and may be related to or GERD/indigestion or musculoskeletal as it sometimes reproducible with palpation but not currently. Patient is high risk and is currently chest pain-free.
� Admit to telemetry observation
� Trend troponin
� NTG as needed chest pain
� Continue Plavix and Eliquis
� Continue statin and ezetimibe
� Continue metoprolol
� Continue to Imdur
Palpitation -patient ECG shows atrial fibrillation. Telemetry is mostly atrial fibrillation rates 60s to 100, transient transitions to sinus with fusion complexes and occasional 2 second pauses. No associated symptoms.
� Continue telemetry monitoring
� Will continue with his usual rate control agents
� Cardiology consulted
Atrial fibrillation
�Continue anticoagulation
� Continue metoprolol, dofetilide
DM 2
� Continue Januvia
� Insulin sliding scale
DVT prophylaxis�on Eliquis
CODE STATUS�DNR
[2025-09-02 07:09] LABS: Troponin I 0.037 ng/ml
--- NOTE | 2025-09-02 07:22 | W.PN.HOSP.TC ---
Today's Communication/Plan
-
Doing better
Echo tomorrow
Assessment / Plan
Assessment / Plan
Physical Exam
General: Not in acute distress
HEENT: Moist mucous membranes
Respiratory: Clear to Auscultation Bilaterally
Cardiac: S1/S2, Irregular Rhythm and Murmur (II/ SERA)
GI: Soft, Non Tender, Non Distended and Normal Bowel Sounds
Musculoskeletal: No Cyanosis and No Edema
Skin: Warm and Dry
Neuro: AO x 3 and Nonfocal/grossly intact
Psych: Calm
Assessment/Plan
85-year-old past medical history significant for atrial fibrillation status post ablation on anticoagulation with Eliquis, CAD status post remote CABG and status post recent PTCA with 1 stent on Plavix, BPH, hyperlipidemia, [id number]
diabetes presented to the emergency department with episode of left-sided chest pain. Chest pain appeared to be atypical and nonradiating however associated with some shortness of breath and heart rate changes. On arrival in the emergency
department was afebrile hemodynamically stable and nontoxic. ECG showed atrial fibrillation and no acute ST or T wave changes. His troponin was negative. He however had episodes of bradycardia in the emergency department but appeared to be
asymptomatic from this initial labs unremarkable. Chest x-ray shows no infiltrates.
Chest pain/CAD -appears to be atypical and may be related to or GERD/indigestion or musculoskeletal as it sometimes reproducible with palpation but not currently.
- Patient is high risk and is currently chest pain-free.
� Continue to monitor on telemetry
� Trend troponin
� NTG as needed chest pain
� Continue Plavix and Eliquis
� Continue statin and ezetimibe
� Continue metoprolol
� Continue to Imdur
- Given his coronary anatomy at 2023 catheterization there was not significant targets for revascularization -- needs aggressive medical management of coronary artery disease
- Low-dose Amlodipine to be added as antianginal
- Check echo tomorrow given aortic stenosis, as per cardiology
Paroxysmal atrial fibrillation
Chest pressure during paroxysmal atrial fibrillation
� Continue telemetry monitoring
� Will continue with his usual rate control agents
� Cardiology consulted
Atrial fibrillation
� Continue anticoagulation
� Continue metoprolol, dofetilide
Type 2 Diabetes Mellitus
� Continue Januvia
� Insulin sliding scale
History of coronary artery bypass surgery
History of pulmonary vein isolation in 2015 and 2021
History of LAD stent
History of myocardial infarction
History of bradycardia sinus
Mixed hyperlipidemia
History of diabetes mellitus
Moderate aortic stenosis
Shingles
DVT prophylaxis�on Eliquis
CODE STATUS�DNR
Anticipated Discharge: Within 24 hours
Subjective/Interval History
-
Date of Service: September 02, 2025
Patient was seen and examined. He was doing okay, denied any new symptoms or complaints.
Objective Data
-
Labs:
Laboratory Results
09/02/25
02:20
WBC 8.1
Hgb 12.7 L
Hct 37.8 L
Plt Count 116 L
Sodium 138
Potassium 3.5
Chloride 105
Carbon Dioxide 25
BUN 18
Creatinine 0.9
Glucose 146 H
Calcium 8.4
Total Bilirubin 0.8
AST 18
ALT 12
Alkaline Phosphatase 97
Vital Signs:
Vital Signs
Temp Pulse Resp BP Pulse Ox
98.4 F 74 18 127/73 93
09/02/25 05:43 09/02/25 05:43 09/02/25 05:43 09/02/25 05:43 09/02/25 06:13
[2025-09-02] MEDS: IMDUR (EXTENDED RELEASE) 60 MG PO (07:35)
[2025-09-02] MEDS: ZETIA 10 MG PO (07:35)
[2025-09-02] MEDS: TIKOSYN 125 MCG PO ×2 (07:35→19:39)
[2025-09-02] MEDS: TOPROL XL 25 MG PO ×2 (07:35→19:39)
[2025-09-02] MEDS: PLAVIX 75 MG PO (07:35)
[2025-09-02] MEDS: ELIQUIS 5 MG PO ×2 (07:35→19:39)
[2025-09-02 08:25] LABS: Glucose - Point of Care 128 mg/dl (70-99)
[2025-09-02] MEDS: NOVOLOG FLEXPEN-LOW RESISTANCE SC ×3 (08:29→17:15)
--- NOTE | 2025-09-02 09:16 | CON.CAR ---
Consultation
Consultation Request
Date/Time Consultation Requested: September 02, 2025
Date/Time Consultation Performed: September 02, 2025
Requesting Provider: Hospitalist
Performing Provider: Guanaco
Reason for Consultation: Palpitations
Medical History
-
Chief Complaint: Palpitations
History of Present Illness:
Mr. Melgar is a very pleasant 85-year-old male with complex past medical history with prior coronary artery bypass surgery with severe chitimacha vessel and graft disease with most recent catheterization in [address] Frederick demonstrating patent CULLEN
graft and all of his vein grafts are occluded. He also has severe chitimacha vessel disease with LAD stent and disease as noted. He is medical management for his coronary artery disease. He tells me he had a prolonged bout of atrial fibrillation at
home lasting 2 to 4 hours and every time he gets bouts of atrial fibrillation he notes chest pressure. Prior history of cardiac ablation in 2015 and 2021 and he is maintained on dofetilide. His ECG demonstrates sinus rhythm with short paroxysms of
atrial fibrillation. He also was a history of at least moderate aortic stenosis with echocardiogram from genera 2024 with moderate aortic stenosis peak gradient 37 mmHg and mean gradient of 20 mmHg. Currently pain-free with indeterminant troponin
Past Medical History
Past Medical History: Arrhythmias, CAD and CHF
Past Surgical History: Cardiac
Social History
Tobacco: Non-Smoker
Alcohol: None
Drug: None
Personal: Other
Living: With Family
Employment: Not Employed
Family History
Family History: Reviewed & Not Pertinent
Allergies / Home Medications
Allergy/AdvReac Type Severity Reaction Status Date / Time
metformin Allergy Unknown Verified 09/11/24 07:16
�Medication �Instructions �Recorded �Confirmed �Type
acetaminophen 325 mg tablet 650 mg (2 x 325 mg) PO Q4HPRN PRN 09/11/19 09/02/25 Rx
mild pain/SHERMAN/temp> 100.4F
cholecalciferol (vitamin D3) 50 2,000 units PO DAILY #10 tabs 09/02/20 09/02/25 Rx
mcg (2,000 unit) tablet
cyanocobalamin (vitamin B-12) 500 mcg PO DAILY Supplement ##0 11/20/21 09/02/25 History
1,000 mcg tablet (Vitamin B-12)
tamsulosin 0.4 mg capsule 0.4 mg PO QPM Urinary Issue 11/20/21 09/02/25 History
apixaban 5 mg tablet (Eliquis) 5 mg PO BID #60 tabs 12/01/21 09/02/25 Rx
isosorbide mononitrate 60 mg 60 mg PO DAILY Heart 12/01/21 09/02/25 History
tablet,extended release 24 hr Disease/Condition
clopidogrel 75 mg tablet 75 mg PO DAILY #90 tabs 09/19/22 09/02/25 Rx
dofetilide 125 mcg capsule 125 mcg PO Q12 #60 caps 09/19/22 09/02/25 Rx
coenzyme Q10 100 mg capsule (Co 100 mg PO DAILY Supplement 09/14/23 09/02/25 History
Q-10)
ezetimibe 10 mg tablet 10 mg PO QPM High Cholesterol 09/14/23 09/02/25 History
sitagliptin phosphate 100 mg 100 mg PO QPM Diabetes 09/14/23 09/02/25 History
tablet (Januvia)
atorvastatin 40 mg tablet 40 mg PO HS 09/11/24 09/02/25 History
metoprolol succinate 25 mg 25 mg PO BID #180 tabs 09/11/24 09/02/25 Rx
tablet,extended release 24 hr
furosemide 20 mg tablet (Lasix) 20 mg PO DAILY 09/02/25 09/02/25 History
gabapentin 100 mg capsule 100 mg PO DAILY 09/02/25 09/02/25 History
Review of Systems
-
All other systems: Negative unless noted
Respiratory: Trouble Breathing
Cardiac: Chest Pain and Palpitations
Physical Exam
Vital Signs
Temp Pulse Resp BP Pulse Ox
98.0 F 65 18 114/65 96
09/02/25 08:00 09/02/25 08:00 09/02/25 08:00 09/02/25 08:00 09/02/25 08:00
Lab Results
09/02/25 02:20
09/02/25 02:20
Troponin I 0.037 ng/ml H* D 09/02/25 06:21
Evh-S-Rksegguncwn Pept 1780 pg/ml 09/02/25 02:20
Physical Exam
General: Well Developed, Well Nourished and No Apparent Distress
HEENT: Normocephalic
Respiratory: Clear
Cardiac: S1/S2, Regular Rhythm and Murmur
Breast: Deferred by me
GI: Soft, Non Tender and Non Distended
Rectal: Deferred by Provider
Genito-urinary: Clear Urine
Musculoskeletal: No Clubbing and No Cyanosis
Skin: Warm and Dry
Neuro: Awake, Alert and Oriented
Hematologic/Lymphatic: No Lymphadenopathy
Psych: Calm
Impression / Plan
-
Impression:
History of coronary artery bypass surgery
History of pulmonary vein isolation in 2015 and 2021
Antiarrhythmic drug therapy
Chronic oral anticoagulation
Paroxysmal atrial fibrillation
Chest pressure during paroxysmal atrial fibrillation
History of LAD stent
History of myocardial infarction
History of bradycardia sinus
Mixed hyperlipidemia
History of diabetes mellitus
Moderate aortic stenosis
Shingles
Recommendations:
Given his coronary anatomy at 2023 catheterization there was not significant targets for revascularization. As such would continue his aggressive medical management of coronary artery disease including Plavix, Eliquis, Zetia, atorvastatin, Imdur,
Toprol and will add low-dose amlodipine given his relatively soft heart rate and blood pressure as an additional antianginal.
- We will repeat echo given his moderate aortic stenosis at last check
-Continue dofetilide as antiarrhythmic
-Continue oral anticoagulation
-He appears euvolemic continue current p.o. Lasix
-We will follow closely with you
Data Reviewed
-
EKG: Tracing Personally Visualized and interpreted
Radiology: Image Personally Visualized and interpreted
Medical Tests (Nuc Med, Echo etc): Image Personally Visualized and interpreted
Labs: Labs Reviewed by me
Old Records: Reviewed
[2025-09-02] MEDS: NORVASC 2.5 MG PO (10:03)
[2025-09-02 12:38] LABS: Glucose - Point of Care 117 mg/dl (70-99)
--- NOTE | 2025-09-02 14:29 | CM ---
CM met with pt at bedside.
Pt resides with sig other in a split level home with 4 + 2 NILSA.
Ind prior to admission with adl's and ambulation using no AD. No DME. +Supervisor [employer].
No HC or SNF history.
[facility] letter done.
Anticipated dc plan home no skilled needs.
--- NOTE | 2025-09-02 14:43 | PTCARENOTE ---
assumed care for pt 3pm-7pm. Pt resting comfortably in bed, CB in reach- reminded to use. No change in previously documented physical assessment
[2025-09-02 17:13] LABS: Glucose - Point of Care 176 mg/dl (70-99)
[2025-09-02] MEDS: LASIX 20 MG PO (17:16)
[2025-09-02] MEDS: LIPITOR 40 MG PO (19:39)
[2025-09-02] MEDS: FLOMAX 0.4 MG PO (19:39)
[2025-09-02 21:11] LABS: Glucose - Point of Care 106 mg/dl (70-99)
[2025-09-02] MEDS: JANUVIA 100 MG PO (21:11)
[2025-09-02 22:32] LABS: Troponin I 0.073 ng/ml
[2025-09-03] VITALS (7 sets, daily range): BP systolic 97–131; BP diastolic 51–74; BMI 26.7
[2025-09-03 04:07] LABS: Troponin I 0.058 ng/ml
[2025-09-03 08:54] LABS: Glucose - Point of Care 116 mg/dl (70-99)
[2025-09-03] MEDS: NOVOLOG FLEXPEN-LOW RESISTANCE SC ×3 (09:08→17:10)
[2025-09-03] MEDS: ZETIA 10 MG PO (09:09)
[2025-09-03] MEDS: TIKOSYN 125 MCG PO (09:09)
[2025-09-03] MEDS: IMDUR (EXTENDED RELEASE) 60 MG PO (09:09)
[2025-09-03] MEDS: VITAMIN D3 (cholecalciferol) 50 MCG PO (09:09)
[2025-09-03] MEDS: VITAMIN B-12 500 MCG PO (09:10)
[2025-09-03] MEDS: ELIQUIS 5 MG PO ×2 (09:10→20:57)
[2025-09-03] MEDS: NEURONTIN 100 MG PO (09:10)
[2025-09-03] MEDS: TOPROL XL 25 MG PO ×2 (09:11→20:59)
[2025-09-03] MEDS: PLAVIX 75 MG PO (09:11)
[2025-09-03] MEDS: NORVASC 2.5 MG PO (09:11)
[2025-09-03 09:38] LABS: Troponin I 0.052 ng/ml
--- NOTE | 2025-09-03 10:35 | CM ---
Addendum entered by Heather Ghotra 09/03/25 15:48:
CM received consult for rojas check of Jardiance/Farxiga 10 mg PO daily. CM spoke with patients prescription coverage- per sales representative uniforms, patient has a $0 co pay- update to Cardiology.
Original Note:
CM reviewed chart, care ongoing.
Patient seen, for Echo today. Denies needs from CM at this time.
CM will continue to follow.
Plan; home no needs anticipated
[2025-09-03 12:09] LABS: Glucose - Point of Care 138 mg/dl (70-99)
--- NOTE | 2025-09-03 14:49 | W.PN.HOSP.TC ---
Today's Communication/Plan
-
Follow ECHO and DC if ok from cards standpoint
Assessment / Plan
Assessment / Plan
Assessment/Plan
85-year-old past medical history significant for atrial fibrillation status post ablation on anticoagulation with Eliquis, CAD status post remote CABG and status post recent PTCA with 1 stent on Plavix, BPH, hyperlipidemia, [id number]
diabetes presented to the emergency department with episode of left-sided chest pain. Chest pain appeared to be atypical and nonradiating however associated with some shortness of breath and heart rate changes. On arrival in the emergency
department was afebrile hemodynamically stable and nontoxic. ECG showed atrial fibrillation and no acute ST or T wave changes. His troponin was negative. He however had episodes of bradycardia in the emergency department but appeared to be
asymptomatic from this initial labs unremarkable. Chest x-ray shows no infiltrates.
Chest pain/CAD -assoicated with palpitations concerning for anginal for Afib
- Patient is high risk and is currently chest pain-free.
� NTG as needed chest pain
� Continue Plavix and Eliquis
� Continue statin and ezetimibe
� Continue metoprolol
� Continue to Imdur
- Given his coronary anatomy at 2023 catheterization there was not significant targets for revascularization -- needs aggressive medical management of coronary artery disease
- Low-dose Amlodipine to be added as antianginal
- Pending echo given aortic stenosis, as per cardiology
Paroxysmal atrial fibrillation
Chest pressure during paroxysmal atrial fibrillation
Currently in rate controlled afib
� Continue telemetry monitoring
� Will continue with his usual rate control agents
� Cardiology following
� Continue anticoagulation
� Continue metoprolol, dofetilide
Type 2 Diabetes Mellitus
� Continue Januvia
� Insulin sliding scale
History of coronary artery bypass surgery
History of pulmonary vein isolation in 2015 and 2021
History of LAD stent
History of myocardial infarction
History of bradycardia sinus
Mixed hyperlipidemia
History of diabetes mellitus
Moderate aortic stenosis
Shingles
DVT prophylaxis�on Eliquis
CODE STATUS�DNR
Anticipated Discharge: Today
Subjective/Interval History
-
Date of Service: September 03, 2025
Currently chest pain-free.
He states yesterday he again had palpitations and associated chest pain while in the hospital.
Denies any shortness of breath currently.
No lightheadedness or dizziness
Objective Data
-
Vital Signs:
Vital Signs
Temp Pulse Resp BP Pulse Ox
97.7 F 77 20 101/51 95
09/03/25 11:00 09/03/25 11:00 09/03/25 11:00 09/03/25 12:03 09/03/25 11:00
I&O
09/02/25 09/03/25 09/04/25
06:59 06:59 06:59
Intake Total 840 / 840
Balance 840 / 840
Physical Exam
-
General: No Apparent Distress
Respiratory: Clear to Auscultation and Non Labored Respirations; Negative Accessory Resp Muscle Use
Cardiac: Regular Rhythm and S1/S2; Negative Tachycardic
GI: Soft
Neuro: AO x 3
Data Reviewed
-
Labs: Labs Reviewed by me
[2025-09-03 15:27] LABS: Troponin I 0.047 ng/ml
[2025-09-03] MEDS: KCL 40 MEQ PO (15:36)
[2025-09-03 17:00] LABS: Glucose - Point of Care 101 mg/dl (70-99)
[2025-09-03] MEDS: LASIX 20 MG PO (17:10)
--- NOTE | 2025-09-03 17:11 | W.PN.CARDCBS ---
Addendum entered and electronically signed by Ananth Lai MD 09/03/25 19:55:
Under plan, should read stop dofetilide, begin amiodarone
Addendum entered and electronically signed by Ananth Lai MD 09/03/25 19:20:
85-year-old man admitted with chest discomfort in the setting of atrial fibrillation with severe underlying CAD, patent CULLEN to LAD and loss of all vein grafts with severe asa'carsarmiut disease
PMH: CABG, with 2023 catheterization demonstrating patent CULLEN and loss of all vein grafts with severe asa'carsarmiut disease, for medical management only, history of PVI 2015 and 2021 on dofetilide, moderate aortic stenosis 2024, peak/mean gradient 37/20
mmHg, remote LAD PCI, diabetes, hyperlipidemia,
Current meds: Apixaban 5 mg twice daily, atorvastatin 40 mg at bedtime, clopidogrel 75 mg a day, dofetilide 125 mcg every 12, ezetimibe 10 mg daily, isosorbide mononitrate, metoprolol ER 25 mg twice daily, Januvia, Flomax, furosemide 20 mg a day,
amlodipine 2.5 mg daily, Neurontin, vitamin D3
101/51, pulse 77, respiratory rate 20, afebrile, weight is 75 kg, Down 1.4 kg from 09/02 or 4 kg from admission, no acute distress, systolic murmur, head neck exam unremarkable, lungs relatively clear, not much edema
Sinus rhythm with PACs and PVCs, QTc borderline
Hemoglobin 12.7, Troponin 0.073, proBNP 1780, BUN and creatinine are 18 and 0.9, potassium 3.5
Impression:
Severe underlying CAD, status post CABG, patent CULLEN to LAD with loss of vein grafts
Heart failure with mildly reduced EF, possibly acute on chronic
Aortic stenosis
History of PVI, proximal LAD [place] stent 2021
PAF, status post PVI 2015 and 2021, on dofetilide, diabetes
Hypertension
Hyperlipidemia
Other diagnoses as below, reviewed in detail and agree unless otherwise specified
Plan:
He is fairly symptomatic with regards to palpitations, chest discomfort and dyspnea. This is likely multifactorial but atrial arrhythmias and episodes of presumed AF may be in large part responsible. Given his coronary anatomy, control of atrial
fibrillation may be important to improve his quality of life. Clearly he is breaking through dofetilide.
Will stop dofetilide and begin aspirin.
proBNP is 1780, highest ever, there may be an element of acute heart failure with mildly reduced EF.
Will give IV Lasix in a.m. He may be a good candidate for an SGLT2 antagonist and/or spironolactone.
Original Note:
Today's Communication / Plan
-
Recheck BMP and magnesium in a.m.
Check ECG in a.m.
Tikosyn stopped, if ECG stable in a.m. then cardiology will start amiodarone
Impression / Plan
-
PCP: Bong Benitez PA-C
Cardiology: Dr. MELISSA Lai
Impression:
Admitted with chest pain 09/02/2025
Chest pain in the setting of recurrent A-fib
CAD
s/p CABG 1998
s/p 2.5 mm [place] JENNY to the proximal LAD 2021
Paroxysmal A-fib
s/p PVI 2015
s/p PVI 2021
Chronic Tikosyn therapy, stopped 09/03/2025
Chronic Eliquis OAC
h/o sinus bradycardia
Mixed hyperlipidemia
DM2
Moderate aortic stenosis
Shingles
Chronic HFpEF
Echo 10/25/2024: EF 50%, normal RV size and function, mitral sclerosis without stenosis and mild MR, moderate peak/mean 37/20 mmHg
Echo 09/03/2025: EF 45 to 50%, mild MR, moderate with peak/mean 42/24 mmHg and JULIA 1.1 cm sq, normal RV size and function with moderate TR and PAP 38 mmHg
Plan:
-Patient came to the ER with chest pain in the setting of recurrent A-fib and was admitted with consultation to cardiology
-Patient has known CAD with previous CABG in 1998 and most recently LAD PCI in 2021. Initial troponin was undetectable and then peaked at 0.073 and is now trending down.
-Echo as noted above shows EF is down a bit of 45 to 50% in the setting of recurrent A-fib
-Patient has known paroxysmal A-fib with previous PVI in 2015 and again in 2021. Patient is now on chronic Tikosyn therapy. Given recurrent symptomatic A-fib Tikosyn is being stopped on 09/03/2025 orders placed by me.
-Check ECG in a.m., orders placed by me if QTc is stable start amiodarone at least 200 mg BID and potentially more.
-Outpatient dose of Eliquis 5 mg BID (age 85, Cre 0.9, wt 74.9 kg) has been continued
-Recheck BMP in a.m. orders placed by me, potassium level was 3.5 on 09/02/[address] Lai has ordered KCl 20 mEq daily
-Outpatient dose of Lasix 20 mg PO daily has been continued, weight is down to 165 lbs on 09/03/2025. Continue to follow daily weight, but no evidence of acute HF
Progress Note - Machine Tailer
Subjective
Date of Service: September 03, 2025
Denies recurrent chest pain
Objective
Labs:
09/02/25 02:20
09/02/25 02:20
Labs
Hgb 12.7 g/dL (13.0-18.0) L 09/02/25 02:20
Hct 37.8 % (39.0-52.0) L 09/02/25 02:20
Plt Count 116 10^3/uL (130-400) L 09/02/25 02:20
Sodium 138 mmol/L (135-145) 09/02/25 02:20
Potassium 3.5 mmol/L (3.5-5.1) 09/02/25 02:20
BUN 18 mg/dl (9-20) 09/02/25 02:20
Creatinine 0.9 mg/dL (0.7-1.3) 09/02/25 02:20
Glucose 146 mg/dl (70-99) H 09/02/25 02:20
Troponins
09/02/25 09/02/25 09/02/25
02:20 06:21 21:22
Troponin I < 0.012 0.037 H* D 0.073 H*
09/03/25 09/03/25 09/03/25
03:22 08:57 14:33
Troponin I 0.058 H* 0.052 H* 0.047 H*
Vital Signs and I&O:
Vital Signs
Temp Pulse Resp BP Pulse Ox
98.1 F 65 16 100/64 96
09/03/25 15:00 09/03/25 15:00 09/03/25 15:00 09/03/25 15:00 09/03/25 15:00
Vital Signs
Temp Pulse Resp BP Pulse Ox
98.1 F 65 16 100/64 96
09/03/25 15:00 09/03/25 15:00 09/03/25 15:00 09/03/25 15:00 09/03/25 15:00
Intake & Output
09/01/25 09/02/25 09/03/25 09/04/25
06:59 06:59 06:59 06:59
Intake Total 840 / 840
Balance 840 / 840
Physical Exam
Physical Exam
GEN: AAO x 3
LUNGS: RA. No audible wheeze
CV: A-fib on telemetry.
[2025-09-03] MEDS: LIPITOR 40 MG PO (21:19)
[2025-09-03] MEDS: FLOMAX 0.4 MG PO (21:19)
[2025-09-03] MEDS: JANUVIA 100 MG PO (21:21)
[2025-09-03 21:41] LABS: Troponin I 0.039 ng/ml
[2025-09-03 21:46] LABS: Glucose - Point of Care 115 mg/dl (70-99)
[2025-09-04 04:12] VITALS: BP 108/65
[2025-09-04 05:10] LABS: Blood Urea Nitrogen 17 mg/dl (9-20); Calcium 9.0 mg/dl (8.4-10.2); Carbon Dioxide 26 mmol/L (22-30); Chloride 106 mmol/L (98-107); Estimated Creatinine Clearance 54 ml/min; Glucose 118 mg/dl (70-99); Magnesium 2.0 mg/dl (1.6-2.3); Potassium 3.9 mmol/L (3.5-5.1); Sodium 137 mmol/L (135-145); eGFR > 60.00
[2025-09-04 05:45] VITALS: BMI 26.7
[2025-09-04 08:07] VITALS: BP 110/59
[2025-09-04 08:26] LABS: Glucose - Point of Care 118 mg/dl (70-99)
[2025-09-04] MEDS: NOVOLOG FLEXPEN-LOW RESISTANCE SC ×3 (08:31→16:50)
[2025-09-04] MEDS: NEURONTIN 100 MG PO (08:33)
[2025-09-04] MEDS: PLAVIX 75 MG PO (08:33)
[2025-09-04] MEDS: ELIQUIS 5 MG PO ×2 (08:33→20:45)
[2025-09-04] MEDS: VITAMIN B-12 500 MCG PO (08:33)
[2025-09-04] MEDS: VITAMIN D3 (cholecalciferol) 50 MCG PO (08:33)
[2025-09-04] MEDS: ZETIA 10 MG PO (08:34)
[2025-09-04] MEDS: NORVASC 2.5 MG PO (08:34)
[2025-09-04] MEDS: TOPROL XL 25 MG PO ×2 (08:34→20:45)
[2025-09-04] MEDS: IMDUR (EXTENDED RELEASE) 60 MG PO (08:35)
[2025-09-04] MEDS: KCL 20 MEQ PO (08:35)
[2025-09-04] MEDS: LASIX 40 MG IV (08:37)
--- NOTE | 2025-09-04 11:09 | W.PN.CARDCBS ---
Addendum entered and electronically signed by Alcides Linn MD 09/04/25 15:06:
I saw and examined the patient.
The Printing Press Operator's note was reviewed and I agree with the note.
GEN: No distress, awake, Ox3
HEENT: supple, anicteric, mmm
LUNGS: CTA, no wheezes/rales
CV: Irreg, S1/S2, 1/6 syst LSB, no gallop
ABD: soft, BS+, NT/ND
EXT: No edema
NEURO: Gross non-focal
SKIN: No rash
PLan:
Remains in atrial fibrillation. Continue Tikosyn washout. Would wait 48 hours from last dose of Tikosyn before initiating amiodarone.
No new chest pains. Cardiac troponins are improving. I suspect this is a nonischemic myocardial injury.
Continue medical therapy for known severe CAD. Blood pressure is stable and well-controlled.
Continue Toprol, amlodipine, Imdur, atorvastatin, Zetia, Eliquis, and Plavix.
Continue Lasix 20 mg p.o. daily. proBNP 1700.
Original Note:
Today's Communication / Plan
-
QTc 500 ms, recheck ECG in a.m.
Last dose of Tikosyn was 09/03/2025 AM and following at least 48 hours of washout can consider starting amiodarone if follow-up ECG stable
Impression / Plan
-
PCP: Bong Benitez PA-C
Cardiology: Dr. MELISSA Lai
Impression:
Admitted with chest pain 09/02/2025
Chest pain in the setting of recurrent A-fib
CAD
s/p CABG 1998
s/p 2.5 mm [place] JENNY to the proximal LAD 2021
Paroxysmal A-fib
s/p PVI 2015
s/p PVI 2021
Chronic Tikosyn therapy, stopped 09/03/2025
Chronic Eliquis OAC
h/o sinus bradycardia
Mixed hyperlipidemia
DM2
Moderate aortic stenosis
Shingles
Chronic HFpEF
Echo 10/25/2024: EF 50%, normal RV size and function, mitral sclerosis without stenosis and mild MR, moderate peak/mean 37/20 mmHg
Echo 09/03/2025: EF 45 to 50%, mild MR, moderate with peak/mean 42/24 mmHg and JULIA 1.1 cm sq, normal RV size and function with moderate TR and PAP 38 mmHg
Plan:
-Patient came to the ER with chest pain in the setting of recurrent A-fib and was admitted with consultation to cardiology
-It is suspected that symptoms are related to recurrent A-fib and known CAD.
-Patient has known CAD with previous CABG in 1998 and most recently LAD PCI in 2021. Initial troponin was undetectable and then peaked at 0.073 and then trended down.
-Echo as noted above shows EF is down a bit of 45 to 50% in the setting of recurrent A-fib
-Patient has known paroxysmal A-fib with previous PVI in 2015 and again in 2021. Patient is now on chronic Tikosyn therapy. Given recurrent symptomatic A-fib Tikosyn was stopped on 09/03/2025 PM.
-Pending washout of Tikosyn we will plan to start amiodarone
-QTc 500 ms on ECG reviewed by me 09/04/2025 no plans to start amiodarone 09/04/2025, recheck ECG in a.m., ordered by me.
-Outpatient dose of Eliquis 5 mg BID (age 85, Cre 0.9, wt 74.9 kg) has been continued
-BMP reviewed by me and potassium improved a bit to 3.9. Continue KCl 20 mEq daily, patient was not taking a potassium supplement prior to admission
-Outpatient dose of Lasix 20 mg PO daily has been continued, weight is down to 165 lbs on 09/03/2025. Continue to follow daily weight, but no evidence of acute HF
Progress Note - System Support Specialist
Subjective
Date of Service: September 04, 2025
Patient has ongoing SCHRADER ambulating in his room
Objective
Labs:
09/02/25 02:20
09/04/25 04:35
Labs
Hgb 12.7 g/dL (13.0-18.0) L 09/02/25 02:20
Hct 37.8 % (39.0-52.0) L 09/02/25 02:20
Plt Count 116 10^3/uL (130-400) L 09/02/25 02:20
Sodium 137 mmol/L (135-145) 09/04/25 04:35
Potassium 3.9 mmol/L (3.5-5.1) 09/04/25 04:35
BUN 17 mg/dl (9-20) 09/04/25 04:35
Creatinine 0.9 mg/dL (0.7-1.3) 09/04/25 04:35
Glucose 118 mg/dl (70-99) H 09/04/25 04:35
Troponins
09/02/25 09/02/25 09/02/25
02:20 06:21 21:22
Troponin I < 0.012 0.037 H* D 0.073 H*
09/03/25 09/03/25 09/03/25
03:22 08:57 14:33
Troponin I 0.058 H* 0.052 H* 0.047 H*
09/03/25
21:12
Troponin I 0.039 H*
Vital Signs and I&O:
Vital Signs
Temp Pulse Resp BP Pulse Ox
97.9 F 64 12 110/59 97
09/04/25 08:07 09/04/25 08:34 09/04/25 08:07 09/04/25 08:34 09/04/25 08:07
Vital Signs
Temp Pulse Resp BP Pulse Ox
97.9 F 64 12 110/59 97
09/04/25 08:07 09/04/25 08:34 09/04/25 08:07 09/04/25 08:34 09/04/25 08:07
Intake & Output
09/02/25 09/03/25 09/04/25 09/05/25
06:59 06:59 06:59 06:59
Intake Total 840 / 840 600 / 600
Balance 840 / 840 600 / 600
Physical Exam
Physical Exam
GEN: AAO x 3
LUNGS: RA. No audible wheeze
CV: A-fib on telemetry.
[2025-09-04 11:20] VITALS: BP 100/71
[2025-09-04 12:14] LABS: Glucose - Point of Care 102 mg/dl (70-99)
--- NOTE | 2025-09-04 14:13 | W.PN.HOSP.TC ---
Today's Communication/Plan
-
Antiarrhythmics per cardiology
DC when stable from cardiology standpoint
Assessment / Plan
Assessment / Plan
Assessment/Plan
85-year-old past medical history significant for atrial fibrillation status post ablation on anticoagulation with Eliquis, CAD status post remote CABG and status post recent PTCA with 1 stent on Plavix, BPH, hyperlipidemia, [id number]
diabetes presented to the emergency department with episode of left-sided chest pain. Chest pain appeared to be atypical and nonradiating however associated with some shortness of breath and heart rate changes. On arrival in the emergency
department was afebrile hemodynamically stable and nontoxic. ECG showed atrial fibrillation and no acute ST or T wave changes. His troponin was negative. He however had episodes of bradycardia in the emergency department but appeared to be
asymptomatic from this initial labs unremarkable. Chest x-ray shows no infiltrates.
Chest pain/CAD -assoicated with palpitations concerning for anginal from Afib
- Patient is high risk and is currently chest pain-free.
� NTG as needed chest pain
� Continue Plavix and Eliquis
� Continue statin and ezetimibe
� Continue metoprolol
� Continue to Imdur
- Given his coronary anatomy at 2023 catheterization there was not significant targets for revascularization -- needs aggressive medical management of coronary artery disease
- Low-dose Amlodipine to be added as antianginal
- echo ET 45-50% (prior it was 50%), mild MR, moderate AI with a peak/mean gradient of 42/24 mmHg pulmonary artery systolic pressure of 38 mmHg
-Cardiology input noted-switching from Tikosyn to amiodarone
Paroxysmal atrial fibrillation
Chest pressure during paroxysmal atrial fibrillation
Currently in rate controlled afib today
Plan for antiarrhythmic switch from Tikosyn to amiodarone noted.
� Continue telemetry monitoring
� Will continue with his usual rate control agents
� Cardiology following
� Continue anticoagulation
� Continue metoprolol
Type 2 Diabetes Mellitus
� Continue Januvia
� Insulin sliding scale
History of coronary artery bypass surgery
History of pulmonary vein isolation in 2015 and 2021
History of LAD stent
History of myocardial infarction
History of bradycardia sinus
Mixed hyperlipidemia
History of diabetes mellitus
Moderate aortic stenosis
Shingles
DVT prophylaxis�on Eliquis
CODE STATUS�DNR
Anticipated Discharge: 24 - 48 hours
Subjective/Interval History
-
Date of Service: September 04, 2025
Had some palpitations and chest discomfort he says again yesterday night for 45 minutes.
Today no chest pain or palpitations.
No dizziness. Denies shortness of breath.
Objective Data
-
Labs:
Laboratory Results
09/04/25
04:35
Sodium 137
Potassium 3.9
Chloride 106
Carbon Dioxide 26
BUN 17
Creatinine 0.9
Glucose 118 H
Calcium 9.0
Vital Signs:
Vital Signs
Temp Pulse Resp BP Pulse Ox
97.4 F 63 20 100/71 96
09/04/25 11:20 09/04/25 11:20 09/04/25 11:20 09/04/25 11:20 09/04/25 11:20
I&O
09/03/25 09/04/25 09/05/25
06:59 06:59 06:59
Intake Total 840 / 840 600 / 600
Balance 840 / 840 600 / 600
Physical Exam
-
General: Comfortable
Respiratory: Non Labored Respirations; Negative Accessory Resp Muscle Use
Cardiac: S1/S2 and Irregular Rhythm; Negative Tachycardic
GI: Soft
Neuro: AO x 3
Data Reviewed
-
Labs: Labs Reviewed by me
[2025-09-04 15:25] VITALS: BP 105/60
[2025-09-04] MEDS: KCL 40 MEQ PO (16:48)
[2025-09-04 16:49] LABS: Glucose - Point of Care 148 mg/dl (70-99)
[2025-09-04] MEDS: LASIX 20 MG PO (16:49)
[2025-09-04 20:20] VITALS: BP 101/65
[2025-09-04 21:27] LABS: Glucose - Point of Care 97 mg/dl (70-99)
[2025-09-04] MEDS: JANUVIA 100 MG PO (21:30)
[2025-09-04] MEDS: LIPITOR 40 MG PO (21:30)
[2025-09-04] MEDS: FLOMAX 0.4 MG PO (21:30)
[2025-09-04 23:42] VITALS: BP 92/54
[2025-09-05 04:11] VITALS: BP 95/59
[2025-09-05 05:57] VITALS: BMI 26.5
[2025-09-05 07:00] VITALS: BP 103/66
[2025-09-05 08:26] LABS: Glucose - Point of Care 115 mg/dl (70-99)
[2025-09-05] MEDS: NOVOLOG FLEXPEN-LOW RESISTANCE SC ×3 (08:33→17:20)
[2025-09-05] MEDS: PLAVIX 75 MG PO (08:35)
[2025-09-05] MEDS: ZETIA 10 MG PO (08:35)
[2025-09-05] MEDS: IMDUR (EXTENDED RELEASE) 60 MG PO (08:36)
[2025-09-05] MEDS: TOPROL XL 25 MG PO ×2 (08:36→19:52)
[2025-09-05] MEDS: KCL 20 MEQ PO (08:36)
[2025-09-05] MEDS: ELIQUIS 5 MG PO ×2 (08:36→19:52)
[2025-09-05] MEDS: NEURONTIN 100 MG PO (08:36)
[2025-09-05] MEDS: NORVASC 2.5 MG PO (08:37)
[2025-09-05] MEDS: VITAMIN B-12 500 MCG PO (08:37)
[2025-09-05] MEDS: VITAMIN D3 (cholecalciferol) 50 MCG PO (08:37)
--- NOTE | 2025-09-05 10:17 | CM ---
CM reviewed chart, patient seen bedside.
Patient denies needs from CM at this time, confirms he will have transport home.
CM will continue to follow for all d/c needs.
Plan; home no needs
[2025-09-05 11:00] VITALS: BP 117/67
--- NOTE | 2025-09-05 11:11 | W.PN.CARDCBS ---
Addendum entered and electronically signed by Benny Hernandez DO 09/05/25 14:10:
I saw and examined the patient.
The Bird Keeper's note was reviewed and I agree with the note.
Comment:
Plan:
Amiodarone to start tonight after Tikosyn wash out
Monitor QTc next 24 hrs
Check EKG in AM if continues to improve likely d/c tomorrow with close clinical follow up.
Remains in sinus with PVCs.
Discussed with primary service.
Original Note:
Today's Communication / Plan
-
Tikosyn washout ends tonight. QTc stable.
Plan to start amiodarone 200mg daily tonight.
Continue Eliquis
Check EKG in AM and if QTc remains stable, ok for discharge.
Follow up arranged.
Impression / Plan
-
PCP: Bong Benitez PA-C
Cardiology: Dr. MELISSA Lai
Impression:
Admitted with chest pain 09/02/2025
Chest pain in the setting of recurrent A-fib
CAD
s/p CABG 1998
s/p 2.5 mm [place] JENNY to the proximal LAD 2021
Paroxysmal A-fib
s/p PVI 2015
s/p PVI 2021
Chronic Tikosyn therapy, stopped 09/03/2025
Chronic Eliquis OAC
h/o sinus bradycardia
Mixed hyperlipidemia
DM2
Moderate aortic stenosis
Shingles
Chronic HFpEF
Echo 10/25/2024: EF 50%, normal RV size and function, mitral sclerosis without stenosis and mild MR, moderate peak/mean 37/20 mmHg
Echo 09/03/2025: EF 45 to 50%, mild MR, moderate with peak/mean 42/24 mmHg and JULIA 1.1 cm sq, normal RV size and function with moderate TR and PAP 38 mmHg
Plan:
-Patient came to the ER with chest pain in the setting of recurrent A-fib.
-Known CAD with prior CABG in 1998 and LAD PCI in 2021.
-Troponin peaked at 0.073 and trended down thereafter. No further chest pain noted. Suspect nonischemic myocardial injury.
-Echo 09/03 as noted above shows EF is down a bit of 45 to 50% in the setting of recurrent A-fib.
-Patient has known paroxysmal A-fib w/ h/o PVI in 2015 and again in 2021. Had been on chronic Tikosyn therapy. Given recurrent symptomatic A-fib Tikosyn was stopped on 09/03/2025 PM.
-48 Hour Tikosyn washout to be completed in PM 09/05. Will plan to start amiodarone 200mg daily tonight.
-In SR with frequent PACs, PVCs on ECG this AM. QTc stable at 476 ms.
-Will recheck EKG in AM and if QT stable, ok for discharge
-Continues on Eliquis 5mg BID for anticoagulation.
-Continue PO lasix 20mg daily. Weight down to 164 lbs 09/05. No evidence of acute heart failure.
-Follow up arranged.
Progress Note - Registered Public Surveyor
Subjective
Date of Service: September 05, 2025
No complaints.
Objective
Labs:
09/02/25 02:20
09/04/25 04:35
Labs
Hgb 12.7 g/dL (13.0-18.0) L 09/02/25 02:20
Hct 37.8 % (39.0-52.0) L 09/02/25 02:20
Plt Count 116 10^3/uL (130-400) L 09/02/25 02:20
Sodium 137 mmol/L (135-145) 09/04/25 04:35
Potassium 3.9 mmol/L (3.5-5.1) 09/04/25 04:35
BUN 17 mg/dl (9-20) 09/04/25 04:35
Creatinine 0.9 mg/dL (0.7-1.3) 09/04/25 04:35
Glucose 118 mg/dl (70-99) H 09/04/25 04:35
Troponins
09/02/25 09/03/25 09/03/25
21:22 03:22 08:57
Troponin I 0.073 H* 0.058 H* 0.052 H*
09/03/25 09/03/25
14:33 21:12
Troponin I 0.047 H* 0.039 H*
Vital Signs and I&O:
Vital Signs
Temp Pulse Resp BP Pulse Ox
98.1 F 75 18 103/66 96
09/05/25 07:00 09/05/25 07:00 09/05/25 07:00 09/05/25 07:00 09/05/25 07:00
Vital Signs
Temp Pulse Resp BP Pulse Ox
98.1 F 75 18 103/66 96
09/05/25 07:00 09/05/25 07:00 09/05/25 07:00 09/05/25 07:00 09/05/25 07:00
Intake & Output
09/03/25 09/04/25 09/05/25 09/06/25
06:59 06:59 06:59 06:59
Intake Total 840 / 840 600 / 600 1140 / 1140 480 / 480
Balance 840 / 840 600 / 600 1140 / 1140 480 / 480
Physical Exam
Physical Exam
GEN: AAO x 3
LUNGS: RA. No audible wheeze
CV: SR on telemetry
--- NOTE | 2025-09-05 11:30 | W.PN.HOSP.TC ---
Today's Communication/Plan
-
Await Switch of antiarrhythmics to amiodarone today
DC when okay from cardiology standpoint
Assessment / Plan
Assessment / Plan
Assessment/Plan
85-year-old past medical history significant for atrial fibrillation status post ablation on anticoagulation with Eliquis, CAD status post remote CABG and status post recent PTCA with 1 stent on Plavix, BPH, hyperlipidemia, [id number]
diabetes presented to the emergency department with episode of left-sided chest pain. Chest pain appeared to be atypical and nonradiating however associated with some shortness of breath and heart rate changes. On arrival in the emergency
department was afebrile hemodynamically stable and nontoxic. ECG showed atrial fibrillation and no acute ST or T wave changes. His troponin was negative. He however had episodes of bradycardia in the emergency department but appeared to be
asymptomatic from this initial labs unremarkable. Chest x-ray shows no infiltrates.
Chest pain/CAD -assoicated with palpitations concerning for anginal from Afib
- Patient is high risk and is currently chest pain-free.
� NTG as needed chest pain
� Continue Plavix and Eliquis
� Continue statin and ezetimibe
� Continue metoprolol
� Continue to Imdur
- Given his coronary anatomy at 2023 catheterization there was not significant targets for revascularization -- needs aggressive medical management of coronary artery disease
- Low-dose Amlodipine to be added as antianginal
- echo ET 45-50% (prior it was 50%), mild MR, moderate AI with a peak/mean gradient of 42/24 mmHg pulmonary artery systolic pressure of 38 mmHg
-Cardiology input noted-switching from Tikosyn to amiodarone after washout of Tikosyn
Paroxysmal atrial fibrillation
Chest pressure during paroxysmal atrial fibrillation
Currently in SR
Plan for antiarrhythmic switch from Tikosyn to amiodarone noted.
� Continue telemetry monitoring
� Will continue with his usual rate control agents
� Cardiology following
� Continue anticoagulation
� Continue metoprolol
Type 2 Diabetes Mellitus
� Continue Januvia
� Insulin sliding scale
History of coronary artery bypass surgery
History of pulmonary vein isolation in 2015 and 2021
History of LAD stent
History of myocardial infarction
History of bradycardia sinus
Mixed hyperlipidemia
History of diabetes mellitus
Moderate aortic stenosis
Shingles
DVT prophylaxis�on Eliquis
CODE STATUS�DNR
DC when ok from cards standpoint
Anticipated Discharge: Today
Subjective/Interval History
-
Date of Service: September 05, 2025
No further chest pain, palpitations. No shortness of breath.
Sitting comfortably in his chair.
No dizziness.
Objective Data
-
Vital Signs:
Vital Signs
Temp Pulse Resp BP Pulse Ox
98.1 F 75 18 103/66 96
09/05/25 07:00 09/05/25 07:00 09/05/25 07:00 09/05/25 07:00 09/05/25 07:00
I&O
09/04/25 09/05/25 09/06/25
06:59 06:59 06:59
Intake Total 600 / 600 1140 / 1140 480 / 480
Balance 600 / 600 1140 / 1140 480 / 480
Physical Exam
-
General: Comfortable
Respiratory: Clear to Auscultation and Non Labored Respirations; Negative Accessory Resp Muscle Use
Cardiac: Regular Rhythm and S1/S2; Negative Tachycardic
Neuro: AO x 3
Psych: Calm
Data Reviewed
-
Labs: Labs Reviewed by me
[2025-09-05 12:47] LABS: Glucose - Point of Care 77 mg/dl (70-99)
[2025-09-05 15:00] VITALS: BP 115/66
[2025-09-05 17:19] LABS: Glucose - Point of Care 127 mg/dl (70-99)
[2025-09-05] MEDS: LASIX 20 MG PO (17:21)
[2025-09-05 19:00] VITALS: BP 108/72
[2025-09-05] MEDS: PACERONE 200 MG PO (19:52)
[2025-09-05] MEDS: LIPITOR 40 MG PO (20:41)
[2025-09-05] MEDS: FLOMAX 0.4 MG PO (20:41)
[2025-09-05] MEDS: JANUVIA 100 MG PO (20:41)
[2025-09-05 20:44] LABS: Glucose - Point of Care 120 mg/dl (70-99)
[2025-09-05 23:00] VITALS: BP 115/61
[2025-09-06 03:00] VITALS: BP 96/51
[2025-09-06 05:55] VITALS: BMI 26.6
[2025-09-06 07:30] VITALS: BP 107/57
[2025-09-06 07:32] LABS: Glucose - Point of Care 119 mg/dl (70-99)
[2025-09-06] MEDS: NOVOLOG FLEXPEN-LOW RESISTANCE SC (07:34)
[2025-09-06] MEDS: KCL 20 MEQ PO (07:35)
[2025-09-06] MEDS: NEURONTIN 100 MG PO (07:35)
[2025-09-06] MEDS: VITAMIN D3 (cholecalciferol) 50 MCG PO (07:35)
[2025-09-06] MEDS: VITAMIN B-12 500 MCG PO (07:35)
[2025-09-06] MEDS: PLAVIX 75 MG PO (07:35)
[2025-09-06] MEDS: ELIQUIS 5 MG PO (07:36)
[2025-09-06] MEDS: NORVASC 2.5 MG PO (07:36)
[2025-09-06] MEDS: IMDUR (EXTENDED RELEASE) 60 MG PO (07:36)
[2025-09-06] MEDS: TOPROL XL 25 MG PO (07:36)
[2025-09-06] MEDS: PACERONE 200 MG PO (07:36)
[2025-09-06] MEDS: ZETIA 10 MG PO (07:37)
--- NOTE | 2025-09-06 09:07 | W.PN.CARDCBS ---
Today's Communication / Plan
-
Overall doing well. Remains in sinus rhythm with PACs.
Check EKG today and if QT interval stable okay for discharge. Would continue amiodarone 200 mg p.o. daily.
Continue metoprolol, Imdur, Lasix 20 mg daily.
BP stable
Continue Eliquis, and Plavix
Impression / Plan
-
PCP: Bong Benitez PA-C
Cardiology: Dr. MELISSA Lai
Impression:
Admitted with chest pain 09/02/2025
Chest pain in the setting of recurrent A-fib
CAD
s/p CABG 1998
s/p 2.5 mm [place] JENNY to the proximal LAD 2021
Paroxysmal A-fib
s/p PVI 2015
s/p PVI 2021
Chronic Tikosyn therapy, stopped 09/03/2025
Chronic Eliquis OAC
h/o sinus bradycardia
Mixed hyperlipidemia
DM2
Moderate aortic stenosis
Shingles
Chronic HFpEF
Echo 10/25/2024: EF 50%, normal RV size and function, mitral sclerosis without stenosis and mild MR, moderate peak/mean 37/20 mmHg
Echo 09/03/2025: EF 45 to 50%, mild MR, moderate with peak/mean 42/24 mmHg and JULIA 1.1 cm sq, normal RV size and function with moderate TR and PAP 38 mmHg
Plan:
-Patient came to the ER with chest pain in the setting of recurrent A-fib.
-Known CAD with prior CABG in 1998 and LAD PCI in 2021.
-Troponin peaked at 0.073 and trended down thereafter. No further chest pain noted. Suspect nonischemic myocardial injury.
-Echo 09/03 as noted above shows EF is down a bit of 45 to 50% in the setting of recurrent A-fib.
-Patient has known paroxysmal A-fib w/ h/o PVI in 2015 and again in 2021. Had been on chronic Tikosyn therapy. Given recurrent symptomatic A-fib Tikosyn was stopped on 09/03/2025 PM.
-48 Hour Tikosyn washout to be completed in PM 09/05. Will plan to start amiodarone 200mg daily tonight.
-In SR with frequent PACs, PVCs on ECG this AM. QTc stable at 476 ms.
- Check a.m. ECG and if QT stable, ok for discharge
-Continues on Eliquis 5mg BID for anticoagulation.
-Continue PO lasix 20mg daily. Weight down to 164 lbs 09/05. No evidence of acute heart failure.
-Follow up arranged.
Progress Note - Pump Stitcher
Subjective
Date of Service: September 06, 2025
Feels well. No chest pains or shortness of breath. Remains in sinus rhythm.
Objective
Labs:
09/02/25 02:20
09/04/25 04:35
Labs
Hgb 12.7 g/dL (13.0-18.0) L 09/02/25 02:20
Hct 37.8 % (39.0-52.0) L 09/02/25 02:20
Plt Count 116 10^3/uL (130-400) L 09/02/25 02:20
Sodium 137 mmol/L (135-145) 09/04/25 04:35
Potassium 3.9 mmol/L (3.5-5.1) 09/04/25 04:35
BUN 17 mg/dl (9-20) 09/04/25 04:35
Creatinine 0.9 mg/dL (0.7-1.3) 09/04/25 04:35
Glucose 118 mg/dl (70-99) H 09/04/25 04:35
Troponins
09/03/25 09/03/25 09/03/25
08:57 14:33 21:12
Troponin I 0.052 H* 0.047 H* 0.039 H*
Vital Signs and I&O:
Vital Signs
Temp Pulse Resp BP Pulse Ox
97.8 F 55 18 107/57 95
09/06/25 07:30 09/06/25 07:30 09/06/25 07:30 09/06/25 07:30 09/06/25 07:30
Vital Signs
Temp Pulse Resp BP Pulse Ox
97.8 F 55 18 107/57 95
09/06/25 07:30 09/06/25 07:30 09/06/25 07:30 09/06/25 07:30 09/06/25 07:30
Intake & Output
09/04/25 09/05/25 09/06/25 09/07/25
06:59 06:59 06:59 06:59
Intake Total 600 / 600 1140 / 1140 480 / 480
Balance 600 / 600 1140 / 1140 480 / 480
Physical Exam
Physical Exam
GEN: No distress, awake, Ox3
HEENT: supple, anicteric, mmm
LUNGS: CTA, no wheezes/rales
CV: Reg, S1/S2, 1/6 syst LSB, no murmur
ABD: soft, BS+, NT/ND
EXT: No edema
NEURO: Gross non-focal
SKIN: No rash
[2025-09-06 11:27] VITALS: BP 103/65
[2025-09-06 11:42] LABS: Glucose - Point of Care 174 mg/dl (70-99)
[2025-09-06] MEDS: NOVOLOG FLEXPEN-LOW RESISTANCE 1 UNITS SC (11:49)
--- NOTE | 2025-09-06 13:42 | W.PN.HOSP.TC ---
Today's Communication/Plan
-
dc
Assessment / Plan
Assessment / Plan
Assessment/Plan
85-year-old past medical history significant for atrial fibrillation status post ablation on anticoagulation with Eliquis, CAD status post remote CABG and status post recent PTCA with 1 stent on Plavix, BPH, hyperlipidemia, [id number]
diabetes presented to the emergency department with episode of left-sided chest pain. Chest pain appeared to be atypical and nonradiating however associated with some shortness of breath and heart rate changes. On arrival in the emergency
department was afebrile hemodynamically stable and nontoxic. ECG showed atrial fibrillation and no acute ST or T wave changes. His troponin was negative. He however had episodes of bradycardia in the emergency department but appeared to be
asymptomatic from this initial labs unremarkable. Chest x-ray shows no infiltrates.
Chest pain/CAD -assoicated with palpitations concerning for anginal from Afib
- Patient is high risk and is currently chest pain-free.
� NTG as needed chest pain
� Continue Plavix and Eliquis
� Continue statin and ezetimibe
� Continue metoprolol
� Continue to Imdur
- Given his coronary anatomy at 2023 catheterization there was not significant targets for revascularization -- needs aggressive medical management of coronary artery disease
- Low-dose Amlodipine to be added as antianginal
- echo ET 45-50% (prior it was 50%), mild MR, moderate AI with a peak/mean gradient of 42/24 mmHg pulmonary artery systolic pressure of 38 mmHg
-Cardiology input noted-switched from Tikosyn to amiodarone after washout of Tikosyn. Patient remains asymptomatic. Obtain prior EKG and for QTc as documented discharge today.
Paroxysmal atrial fibrillation
Chest pressure during paroxysmal atrial fibrillation
Currently in SR
Plan for antiarrhythmic switch from Tikosyn to amiodarone noted.
� Continue telemetry monitoring
� Will continue with his usual rate control agents
� Cardiology following
� Continue anticoagulation
� Continue metoprolol
Type 2 Diabetes Mellitus
� Continue Januvia
� Insulin sliding scale
History of coronary artery bypass surgery
History of pulmonary vein isolation in 2015 and 2021
History of LAD stent
History of myocardial infarction
History of bradycardia sinus
Mixed hyperlipidemia
History of diabetes mellitus
Moderate aortic stenosis
Shingles
DVT prophylaxis�on Eliquis
CODE STATUS�DNR
Obtain twelve-lead EKG and if QTc is okay will discharge patient.
Anticipated Discharge: Today
Subjective/Interval History
-
Date of Service: September 06, 2025
No further chest pains or palpitations.
Objective Data
-
Vital Signs:
Vital Signs
Temp Pulse Resp BP Pulse Ox
97.3 F 62 18 103/65 96
09/06/25 11:27 09/06/25 11:27 09/06/25 11:27 09/06/25 11:27 09/06/25 11:27
I&O
09/05/25 09/06/25 09/07/25
06:59 06:59 06:59
Intake Total 1140 / 1140 480 / 480
Balance 1140 / 1140 480 / 480
Physical Exam
-
General: Comfortable
Respiratory: Non Labored Respirations; Negative Accessory Resp Muscle Use
Cardiac: Regular Rhythm and S1/S2; Negative Tachycardic
GI: Soft
Neuro: AO x 3
Psych: Calm
[2025-09-06 14:34] VITALS: BP 108/64
--- NOTE | 2025-09-06 15:03 | CM ---
Patient will discharge home today
Met w/ patient and son bedside, agreeable to d/c
IMM verbally reviewed, copy provided, copy on chart
No CM needs at this time
Plan: Home, no needs
== END 2025-09-06 15:10 | disposition home or self-care (01) | DRG 303 ==
LOC: 4 WEST ACU 13:50
PROVIDERS: Hospitalist; Physician Assistant Medical; ADMITTING PHYSICIAN Internal Medicine; ATTENDING PHYSICIAN Internal Medicine; CONSULT PHYSICIAN Internal Medicine Cardiovascular Disease; EMERGENCY PHYSICIAN Emergency Medicine; FAMILY PHYSICIAN Nurse Practitioner Family
DX: I25.10 Atherosclerotic heart disease of native coronary artery without angina pectoris (principal); I48.0 Paroxysmal atrial fibrillation; Z95.1 Presence of aortocoronary bypass graft; Z79.02 Long term (current) use of antithrombotics/antiplatelets; E11.9 Type 2 diabetes mellitus without complications; Z95.5 Presence of coronary angioplasty implant and graft; I25.2 Old myocardial infarction; E78.2 Mixed hyperlipidemia; B02.9 Zoster without complications; I35.0 Nonrheumatic aortic (valve) stenosis; I11.0 Hypertensive heart disease with heart failure; N40.0 Benign prostatic hyperplasia without lower urinary tract symptoms; Z87.891 Personal history of nicotine dependence; Z79.01 Long term (current) use of anticoagulants; Z79.899 Other long term (current) drug therapy; Z66 Do not resuscitate; Z88.8 Allergy status to other drugs, medicaments and biological substances
CPT/HCPCS: 71046; 80048; 80053; 82962; 83735; 83880; 84484; 85025; 93005; 93306; 99285

== ENCOUNTER → 2025-09-17 08:17 | Outpatient (REF) | payer OTHER, SELFPAY ==
[2025-09-17 09:34] LABS: Blood Urea Nitrogen 17 mg/dl (9-20); Calcium 8.9 mg/dl (8.4-10.2); Carbon Dioxide 25 mmol/L (22-30); Chloride 103 mmol/L (98-107); Glucose 106 mg/dl (70-99); Potassium 4.3 mmol/L (3.5-5.1); Sodium 137 mmol/L (135-145); eGFR > 60.00
== END ==
LOC: REG 08:17
PROVIDERS: ATTENDING PHYSICIAN Nurse Practitioner Family
DX: I50.9 Heart failure, unspecified (principal); I48.91 Unspecified atrial fibrillation
CPT/HCPCS: 36415; 80048

== ENCOUNTER → 2025-09-24 08:09 | Outpatient (REF) | payer OTHER, SELFPAY ==
[2025-09-24 09:53] LABS: Blood Urea Nitrogen 16 mg/dl (9-20); Calcium 8.6 mg/dl (8.4-10.2); Carbon Dioxide 26 mmol/L (22-30); Chloride 104 mmol/L (98-107); Glucose 102 mg/dl (70-99); Potassium 4.2 mmol/L (3.5-5.1); Sodium 137 mmol/L (135-145); eGFR > 60.00
== END ==
LOC: REG 08:09
PROVIDERS: ATTENDING PHYSICIAN Nurse Practitioner Family
DX: E11.59 Type 2 diabetes mellitus with other circulatory complications (principal)
CPT/HCPCS: 36415; 80048